=== PATIENT | male | born 1950 | race Two or more races ===

== ENCOUNTER 2024-12-30 10:54 | Emergency (ER) | payer OTHER ==
[~2024-12-30] VITALS: Ht 172.7 cm; Wt 103.4 kg
[2024-12-30] MEDS ORDERED: ACETAMINOPHEN 325 MG TAB PO PRN (11:30)
[2024-12-30] MEDS ORDERED: ARTIFICIAL TEARS 15ml EACHEYE PRN (11:30)
--- NOTE | 2024-12-30 11:34 | ED.PDOC ---
Eye-HPI HPI Comments Rd Person is a 74-year-old male patient who presents to the ED which complaint of mechanical fall with no loss of consciousness and head trauma, with posterior blurry vision from right eye which had cornea transplant. [facility] recommended to refer him to the ED to completed head CT and physical examination. Patient currently complains of head pain of intensity 6- 7/10. Patient also presented abrasion in left dorsum hand. Denies fever, chills, palpitation, syncope, chest pain, dyspnea, nausea, vomiting, diarrhea, bleeding, dysuria, recent travel and motor or sensory deficits. 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 Surgical history: Corneal transplant 2013, dental implants in this month, meniscus tear surgery who per Family history: Denies Social history: Lives in [place] with [id number]. Occasionally smokes marijuana in drinks beer. Denies current tobacco, alcohol and other drug abuse Allergies: Denies Home medication: Metformin, gabapentin, multivitamin, he does not recall rest of medication. Time Seen by MD: 11:02 Allergies: Coded Allergies: NO KNOWN ALLERGIES (Unverified , 12/30/24) Physical Exam General Appearance: No Apparent Distress, Normal HEENT: Cornea (R) (Cornea presents no obvious abrasions.), Normal ENT Inspection, Pharynx Normal, TMs Normal, Other (Right conjunctiva erythema) Neck: Full Range of Motion, Non-Tender, Normal, Normal Inspection Respiratory: Chest Non-Tender, Lungs Clear, No Accessory Muscle Use, No Respiratory Distress, Normal Breath Sounds Cardiovascular: No Edema, No JVD, No Murmur, No Gallop, Normal Peripheral Pulses, Regular Rate/Rhythm Breast Exam: Deferred Gastrointestinal: No Organomegaly, Non Tender, No Pulsatile Mass, Normal Bowel Sounds, Soft Genitalia: Deferred Pelvic: Deferred Rectal: Deferred Extremities: No calf tenderness, Normal capillary refill, Normal inspection, No rmal range of motion, Non-tender, No pedal edema, Other (Abrasion in dorsum of left hand) Neurologic: Alert, epic kaleidoscope analyst II-XII nml as Tested, No Motor Deficits, Normal Affect, Normal Mood, No Sensory Deficits Cerebellar Function: Normal Reflexes: Normal Skin: Dry, Normal Color, Warm Lymphatic: No Adenopathy Was a procedure done? Was a procedure done?: No EENT DIFF Eye: Corneal Ulceration, Foreign Body-Conjunctiva, Foreign Body-Corneal Other Differential Diagnosis Rule out intracranial bleeding X-Ray, Labs, Meds, VS Vital Signs Date Time Temp Pulse Resp B/P (MAP) Pulse Ox O2 Delivery O2 Flow Rate FiO2 12/30/24 12:14 65 16 97 Room Air 12/30/24 12:14 98.3 65 16 155/81 (105) 97 98.3 12/30/24 12:09 97.7 12/30/24 11:51 97.5 71 16 170/76 (107) 98 Current Medications Medications (Trade) Dose Ordered Sig/Vianney Route Start Time Stop Time Status Last Admin Acetaminophen (Tylenol Tablet) 650 mg ONCE ONCE PO 12/30/24 11:30 12/30/24 11:31 DC 12/30/24 12:09 Artificial Tears (Tears Naturale) 1 drop ONCE ONCE EACHEYE 12/30/24 11:30 12/30/24 11:31 DC 12/30/24 12:10 X-Ray, Labs, Meds, VS Comment Reviewed vital signs and head CT. All within normal limits. Time of 1ST Reevaluation: 12:53 Reevaluation 1ST: Unchanged Patient Education/Counseling: Diagnosis, Treatment, Prognosis, Need For Follow Up (With business loan processor) Family Education/Counseling: Diagnosis, Treatment, Prognosis, Need For Follow Up (With business loan processor) Departure 1 Departure Time of Disposition: 12:53 Impression: Primary Impression: Head trauma Disposition: 01 HOME / SELF CARE / HOMELESS Condition: Stable Referrals Patient has a see business loan processor through [place]. Additional Instructions: Completed head CT which showed no acute intracranial abnormalities. Vital signs were within normal limits. Physical examination did not show any perforation of corneal, can not rule out microperforation. Patient was given Tylenol eyedrops. Patient will need to see business loan processor as outpatient. Patient hemodynamically stable, asymptomatic, in condition to be discharged home. Was granted under optimal medical therapy, gave her advice on healthy lifestyle habits, and follow up with PCP and business loan processor as outpatient. Critical Care Note Critical Care Time?: No Stability Stability form required: No Heart Score Heart Score: Heart Score Response (Comments) Value History N/A 0 EKG N/A 0 Age N/A 0 Risk Factors N/A 0 Troponin N/A 0 Total 0 МАРИНА CALERO RESIDENT Dec 30, 2024 11:34
--- NOTE | 2024-12-30 12:05 | DVH ---
CT HEAD WITHOUT CONTRAST INDICATION: Head trauma EXAM DATE: 12/30/2024 11:37 AM COMPARISON: None RADIATION DOSE: CTDIvol: 67.43 mGy, DLP: 1328.6 mGy*cm PROCEDURE: CT scans of the head were obtained from the vertex to the skull base. Sagittal and coronal reconstructions were provided. All CT scans at this medical facility are performed using dose modulation techniques as appropriate t o a performed exam including the following: Automated exposure control was utilized; adjustment of th e MA and/or KV according to patient size; and use of iterative reconstruction technique. FINDINGS: There is sulcal and ventricular prominence. The brainshows normal morphology and hilario-whi te matter differentiation, without intracranial hemorrhage, extra-axial fluid collection, mass effect or acute large vessel infarct. The ventricles are normal in size. The basal cisterns are patent. The skull and visible facial bones are intact. The paranasal sinuses, mastoid air cells and middle ear c avities are well-aerated. The soft tissues of the scalp are unremarkable. IMPRESSION: No acute intracranial abnormality.
[2024-12-30] MEDS: ACETAMINOPHEN 325 MG TAB PO ONE (12:09)
[2024-12-30] MEDS: ARTIFICIAL TEARS 15ml EACHEYE ONE (12:10)
[2024-12-30 14:40] VITALS: BP 156/69; PULSE 56; RESP 16; TEMP 97.7; O2SAT 99
== END 2024-12-30 14:40 | disposition home or self-care (01) ==
LOC: ER 10:59
DX: S60.512A Abrasion of left hand, initial encounter (principal); S09.90XA Unspecified injury of head, initial encounter; W18.39XA Other fall on same level, initial encounter; Y93.89 Activity, other specified; Y92.89 Other specified places as the place of occurrence of the external cause; Y99.8 Other external cause status
CPT/HCPCS: 70450

== ENCOUNTER 2025-02-20 17:39 | Inpatient (IN) | payer OTHER, MEDICARE ==
[~2025-02-20] VITALS: Ht 172.7 cm; Wt 101.2 kg
[2025-02-20 17:44] VITALS: PULSE 120; RESP 41; O2SAT 89
--- NOTE | 2025-02-20 17:45 | ED.PDOC ---
SOB-HPI HPI Comments 75 year old male brought in by EMS presents to the ED with a chief complaint of shortness of breath onset 1 day. Per EMS, patient was experiencing shortness of breath since yesterday, worsen today, began experiencing chest wall pain. Upon EMS arrival, O2 sat was 76% RA, immediately placed on C-pap, 2 breathing treatments given in route as well as Nitro patch applied, improved chest pain. Upon ED arrival patient O2 sat was 75% on C-pap, placed on a non-breather. He denies any cardiac or pulmonary PMHx. PMhx HTN, DM, HLD. Denies nausea, vomiting, diarrhea, abdominal pain, dizziness, blurry vision. No other symptoms or modifying factors present at this time. No fever but intermittent nausea. Time Seen by MD: 17:38 Reviewed notes: Nurses Notes, Occupational Analyst Notes, Medications, Allergies Information Source: Patient, Emergency Med Personnel Mode of Arrival: EMS Severity: Moderate Timing: Days Duration: Since onset Context: At Rest PE Risk Factors: None History of: None Prehospital treatment: Breathing Tx, C-Pap, Other (Nitro patch) Modifying Factors: Nothing Associated Signs and Symptoms: Chest Pain Quality: Sharp Radiation: No Radiation Past Medical History PAST MEDICAL HISTORY: DM, HTN Surgical History: Denies all surgeries Family History Family History: Reviewed,noncontributory to illness, No family hx of Cancer, No family hx of DM, No family hx of Heart victoria, No family hx of HTN, No family hx ofKidney victoria, No family hx of Liver victoria, No family hx of Lung victoria, No family hx of Stroke Social History Smoker: Non-Smoker Alcohol: Denies ETOH Use Drugs: Denies Drug Use Lives In: Home Constitutional: denies: chills, diaphoresis, fatigue, fever, malaise, sweats, weakness, others EENTM: denies: blurred vision, double vision, ear bleeding, ear discharge, ear drainage, ear pain, ear ringing, eye pain, eye redness, hearing loss, mouth pain, mouth swelling, nasal discharge, nose bleeding, nose congestion, nose pain, photophobia, tearing, throat pain, throat swelling, voice changes, others Respiratory: reports: SOB at rest, shortness of breath; denies: cough, hemoptysis, orthopnea, SOB with excertion, stridor, wheezing, others Cardiovascular: reports: chest pain; denies: dizzy spells, diaphoresis, Dyspnea on exertion, edema, irregular heart beat, left arm pain, lightheadedness, palpitations, PND, syncope, others Gastrointestinal: denies: abdomen distended, abdominal pain, blood streaked bowels, constipated, diarrhea, dysphagia, difficulty swallowing, hematemesis, melena, nausea, poor appetite, poor fluid intake, rectal bleeding, rectal pain, vomiting, others Genitourinary: denies: burning, dysuria, flank pain, frequency, hematuria, incontinence, penile discharge, penile sore, pain, testicle pain, testicle swelling, urgency, others Neurological: denies: dizziness, fainting, headache, left sided numbness, left sided weakness, numbness, paresthesia, pre-existing deficit, right sided numbness, right sided weakness, seizure, speech problems, tingling, tremors, weakness, others Musculoskeletal: denies: back pain, gout, joint pain, joint swelling, muscle pain, muscle stiffness, neck pain, others Integumetry: denies: bruises, change in color, change in hair/nails, dryness, laceration, lesions, lumps, rash, wounds, others Allergic/Immunocompromised: denies: Difficulty Healing, Frequent Infections, Hives, Itching, others Hematologic/Lymphatic: denies: anemia, blood clots, easy bleeding, easy bruising, swollen glands, others Endocrine: denies: excessive hunger, excessive sweating, excessive thirst, excessive urination, flushing, intolerance to cold, intolerance to heat, unexplained weight gain, unexplained weight loss, others Psychiatric: denies: anxiety, bipolar disorder, depression, hopeless, panic disorder, schizophrenia, sleepless, suicidal, others Physical Exam General Appearance: Moderate Distress (Moderate distress due to chest pain concerns. Patient appears to be in poor overall health.), Obese HEENT: Normal ENT Inspection, Pharynx Normal, TMs Normal Neck: Full Range of Motion, Non-Tender, Normal, Normal Inspection Respiratory: Other ( Patient here rhonchi and wheezing appreciated throughout bilateral lung de leon. Patient was displaying signs of air hunger.) Cardiovascular: No Edema, No JVD, No Murmur, No Gallop, Normal Peripheral Pulses, Regular Rate/Rhythm Breast Exam: Deferred Gastrointestinal: No Organomegaly, Non Tender, No Pulsatile Mass, Normal Bowel Sounds, Soft Genitalia: Deferred Pelvic: Deferred Rectal: Deferred Extremities: NOT DONE Neurologic: NOT DONE Cerebellar Function: NOT DONE Reflexes: NOT DONE Skin: Dry, Normal Color, Warm Lymphatic: No Adenopathy Was a procedure done? Was a procedure done?: No Differential Dx Differential Diagnosis: Anxiety, Asthma, Bronchitis, CHF, Hypertension, Hyperventilation, Myocardial infarction, Pneumonia, Pneumothorax, Pulmonary Embolism, Respiratory Distress, URI X-Ray, Labs, Meds, VS Vital Signs Date Time Temp Pulse Resp B/P (MAP) Pulse Ox O2 Delivery O2 Flow Rate FiO2 02/20/25 22:45 101 92 Facial BiPAP Mask 40 02/20/25 22:36 105/75 02/20/25 22:00 99 23 105/75 (85) 91 02/20/25 20:58 98.9 107 22 123/64 95 98.9 02/20/25 20:42 107 123/64 95 Facial BiPAP Mask 40 02/20/25 19:15 98.9 99 22 103/52 (69) 94 98.9 02/20/25 19:15 99 22 94 Nasal Cannula* 40 N/A Non-Rebreather 02/20/25 18:38 22 92 Bi-Pap+ 40 40 02/20/25 18:00 105 02/20/25 17:59 107 02/20/25 17:51 42 91 Non-Rebreather 15 N/A 02/20/25 17:46 97.7 122 42 118/62 (80) 91 97.7 02/20/25 17:44 97.6 120 41 118/62 (80) 89 97.6 02/20/25 17:44 120 41 89 Nasal Cannula* 15 N/A Non-Rebreather Lab Test 02/20/25 21:10 02/20/25 20:05 02/20/25 19:10 02/20/25 17:55 Range/Units Troponin I High Sensitivity 7814 *H 4267 *H 2415 *H </=54 ng/L Blood Gas Specimen Type Arterial Blood Gas Sample Site Right radial Blood Gas Patient Temperature 37.0 Arterial Blood Date Drawn [id number] Arterial Blood pH 7.385 7.350-7.450 Arterial Blood Partial Pressure CO2 27.0 L 35.0-48.0 mmHg Arterial Blood Partial Pressure O2 67.4 L 83.0-108.0 mmHg Arterial Blood HCO3 15.8 L 21.0-28.0 mmol/L Arterial Blood Oxygen Saturation 93.1 L 94.0-98.0 % Arterial Blood Base Excess -7.9 L -2.0-3.0 mmol/L Arterial Blood Oxyhemoglobin 92.2 L 94.0-98.0 % Arterial Blood Carboxyhemoglobin 0.4 L 0.5-1.5 % Arterial Blood Methemoglobin 0.6 0.0-1.5 % Silverio Test Yes Blood Gas Total Hemoglobin 11.20 L 13.5-17.5 g/dL Blood Gas Modality Mask - bipap FiO2 % 40.0 Blood Gas EPAP 5 Blood Gas IPAP 12 Lactic Acid Level 4.1 *H 4.3 *H 0.4-2.0 mmol/L White Blood Count 6.2 4.4-10.8 10^3/uL Red Blood Count 3.27 L 4.5-5.90 10^6/uL Hemoglobin 11.1 L 13.5-17.5 g/dL Hematocrit 33.6 L 41.0-53.0 % Mean Corpuscular Volume 102.8 H 80.0-100.0 fL Mean Corpuscular Hemoglobin 34.1 H 28.0-32.0 pg Mean Corpuscular Hemoglobin Concent 33.2 32.0-36.0 g/dL Red Cell Distribution Width 14.7 H 11.8-14.3 % Platelet Count 172 140-450 10^3/uL Mean Platelet Volume 8.7 6.9-10.8 fL Neutrophils (%) (Auto) 69.3 37.0-80.0 % Lymphocytes (%) (Auto) 22.0 10.0-50.0 % Monocytes (%) (Auto) 8.3 0.0-12.0 % Eosinophils (%) (Auto) 0.1 0.0-7.0 % Basophils (%) (Auto) 0.3 0.0-2.0 % Neutrophils # (Auto) 4.3 1.6-8.6 10 ^3/uL Lymphocytes # (Auto) 1.4 0.4-5.4 10 ^3/uL Monocytes # (Auto) 0.5 0-1.3 10 ^3/uL Eosinophils # (Auto) 0 0-0.8 10 ^3/uL Basophils # (Auto) 0 0-0.2 10 ^3/uL Nucleated Red Blood Cells 0.0 % D-Dimer, Quantitative 1.96 H 0.0-0.49 mg/L FEU Sodium Level 136 136-145 mmol/L Potassium Level 4.0 3.5-5.1 mmol/L Chloride Level 103 98-107 mmol/L Carbon Dioxide Level 17 L 20-31 mmol/L Anion Gap 16 H 5-15 Blood Urea Nitrogen 36 H 9-23 mg/dL Creatinine 1.26 0.700-1.30 mg/dL Glomerular Filtration Rate Calc 59 >90 mL/min BUN/Creatinine Ratio 28.6 H 10.0-20.0 Serum Glucose 329 H 74-106 mg/dL Calcium Level 9.4 8.7-10.4 mg/dL Total Bilirubin 1.1 H 0.2-1.0 mg/dL Aspartate Amino Transferase (AST) 83 H 13-40 U/L Alanine Aminotransferase (ALT) 36 7-40 U/L Alkaline Phosphatase 114 46-116 U/L B-Type Natriuretic Peptide 621.41 0-100 pg/mL Total Protein 7.0 5.7-8.2 g/dL Albumin 4.6 3.2-4.8 g/dL Lipase 23 12-53 U/L Current Medications Medications (Trade) Dose Ordered Sig/Vianney Route Start Time Stop Time Status Last Admin Albuterol (Ventolin Medneb) 20 mg ONCE ONCE NEB 02/20/25 17:45 02/20/25 17:46 DC 02/20/25 18:10 Piperacillin Sod/ Tazobactam Sod 100 ml @ 100 mls/hr ONCE ONCE IV 02/20/25 19:15 02/20/25 20:14 DC 02/20/25 19:44 Sodium Chloride 1,000 ml @ 250 mls/hr Q4H ONCE IV 02/20/25 19:15 02/20/25 23:14 DC 02/20/25 19:44 Vancomycin HCl 300 ml @ 200 mls/hr ONCE ONCE IV 02/20/25 19:30 02/20/25 20:59 DC 02/20/25 21:44 Enoxaparin Sodium (Lovenox) 40 mg ONCE ONCE SC 02/20/25 22:30 02/20/25 22:31 DC 02/20/25 22:37 Dexamethasone Sodium Phosphate (Decadron Injection) 10 mg ONCE ONCE IV 02/20/25 22:45 02/20/25 22:46 DC 02/20/25 22:37 Furosemide (Lasix Injection) 40 mg ONCE ONCE IV 02/20/25 22:45 02/20/25 22:46 DC 02/20/25 22:36 Lorazepam (Ativan Inj) 1 mg ONCE ONCE IV 02/20/25 23:15 02/20/25 23:16 DC 02/20/25 23:15 X-Ray, Labs, Meds, VS Comment All studies performed the ED were evaluated by me personally. Serum evaluation revealed anemia, acute renal failure concerns, hyperglycemia, acute CHF exacerbation, elevated D-dimer, elevated lactic acid and significantly elevated troponins. Dr. Kumari was consulted on two occasions to evaluate EKG and responded troponin information. He states patient should be put on heparin or Lovenox and patient will receive a cardiac evaluation tomorrow. We attempted to remove the patient on the BiPAP on to high-flow rebreather as well as Oxymizer, but the patient continued to reduce his saturation levels. Patient will be admitted for acute respiratory failure and other comorbidities. Time of 1ST Reevaluation: 23:34 Reevaluation 1ST: Improved Consultation: PCP Patient Education/Counseling: Diagnosis, Treatment Family Education/Counseling: Diagnosis, Treatment Departure 1 Departure Time of Disposition: 23:39 Impression: Primary Impression: Acute respiratory failure Additional Impressions: Acute exacerbation of CHF (congestive heart failure) Elevated troponin I level Elevated lactic acid level Diabetes mellitus with hyperglycemia Acute renal injury Anemia Anxiety Disposition: 09 ADMITTED INPATIENT Condition: Fair Discharged With: Self Critical Care Note Critical Care Time?: Yes (1 hr-critical care time only) Critical care comment: Due to the high probability of a clinically significant and possibly life- threatening deterioration, this patient required my highest level of preparedness to intervene emergently and therefore, I personally provided 1 hour of critical care time exclusive of time spent on separate billable procedures. This critical care time includes, but is not limited to, obtaining additional history, re-examination of the patient, re-evaluation of pulse oximetry, ordering and reviewing of studies as well as arranging of an urgent treatment plan with the development of a long-term management plan. Additional time spent on evaluation the patient's response to treatment, frequent reassessments and discussions with other providers. Stability Stability form required: No Heart Score Heart Score: Heart Score Response (Comments) Value History Moderate Suspicious 1 EKG Repolarization Disturb 1 Age >65 2 Risk Factors 1 or 2 risk factors 1 Troponin >3 x's Normal limit 2 Total 7 I personally scribed for HILDA LOJA PAC ([email or web address]) on 02/20/25 at 17:45. Electronically submitted by Vandana Abernathy ([email or web address]). HILDA LOJA PAC Feb 20, 2025 17:45
[2025-02-20] MEDS: ALBUTEROL SULF 2.5 MG/0.5ML(0.5%) NEB SOLN NEB ONE (18:10)
[2025-02-20 18:23] LABS: Basophils # (auto) 0 10 ^3/uL (0-0.2); Basophils % (auto) 0.3 % (0.0-2.0); Eosinophils # (auto) 0 10 ^3/uL (0-0.8); Eosinophils % (auto) 0.1 % (0.0-7.0); Hematocrit 33.6 % (41.0-53.0); Hemoglobin 11.1 g/dL (13.5-17.5); Lymphocytes # (auto) 1.4 10 ^3/uL (0.4-5.4); Mean Corpuscular Hemoglobin 34.1 pg (28.0-32.0); Mean Corpuscular Hgb Conc. 33.2 g/dL (32.0-36.0); Mean Corpuscular Volume 102.8 fL (80.0-100.0); Monocytes # (auto) 0.5 10 ^3/uL (0-1.3); Monocytes % (auto) 8.3 % (0.0-12.0); Neutrophils # (auto) 4.3 10 ^3/uL (1.6-8.6); Neutrophils % (auto) 69.3 % (37.0-80.0); Platelet Count (auto) 172 10^3/uL (140-450); Red Blood Cells 3.27 10^6/uL (4.5-5.90); Red Cell Distribution Width 14.7 % (11.8-14.3); White Blood Cell 6.2 10^3/uL (4.4-10.8)
--- NOTE | 2025-02-20 18:25 | DVH ---
CHEST RADIOGRAPH Indication: Shortness of breath Technique: Single frontal view of the chest was obtained COMPARISON: None FINDINGS: Lines and Tubes: None Lungs: Patchy multifocal consolidation is noted, predominantly in the right lung. Pleura: No effusion. No pneumothorax. Cardiomediastinal contours: Cardiomegaly. Bones: Unremarkable IMPRESSION: 1. Patchy multifocal consolidation concerning for pneumonia, predominantly in the right lung.
[2025-02-20 18:41] LABS: Alanine Aminotransferase 36 U/L (7-40); Albumin 4.6 g/dL (3.2-4.8); Alkaline Phosphatase 114 U/L (46-116); Anion Gap 16 (5-15); BUN/Creatinine Ratio 28.6 (10.0-20.0); Bilirubin, Total 1.1 mg/dL (0.2-1.0); Calcium 9.4 mg/dL (8.7-10.4); Chloride 103 mmol/L (98-107); Lipase 23 U/L (12-53)
[2025-02-20 18:43] LABS: Aspartate Aminotransferase 83 U/L (13-40); Blood Urea Nitrogen 36 mg/dL (9-23); Carbon Dioxide 17 mmol/L (20-31); Glucose 329 mg/dL (74-106); Sodium 136 mmol/L (136-145)
[2025-02-20 18:46] LABS: Lactic Acid w/Reflex 4.3 mmol/L (0.4-2.0)
[2025-02-20 19:15] VITALS: PULSE 99; RESP 22; O2SAT 94
[2025-02-20] MEDS ORDERED: VANCOMYCIN PER PHARMACY 0 MG IV SCH (19:15)
[2025-02-20] MEDS: PIPERACILLIN-TAZOB 3.375GM 100 ML IV ONE (19:44)
[2025-02-20] MEDS: SODIUM CHLORIDE 0.9% 1,000 ML IV ONE (19:44)
[2025-02-20 20:17] LABS: Base Excess -7.9 mmol/L (-2.0-3.0)
[2025-02-20 20:42] VITALS: BP 123/64; PULSE 107; O2SAT 95
[2025-02-20 20:58] VITALS: BP 123/64; PULSE 107; RESP 22; TEMP 98.9; O2SAT 95
[2025-02-20] MEDS: VANCOMYCIN 1.5GM/300ML 300 ML IV ONE (21:44)
[2025-02-20] MEDS: FUROSEMIDE 40 MG/4 ML VIAL IV ONE (22:36)
[2025-02-20] MEDS: DexAMETHasone SOD PHOS 10MG/1ML VIAL INJ IV ONE (22:37)
[2025-02-20] MEDS: ENOXAPARIN SOD 40 MG/0.4 ML SYRINGE SC ONE (22:37)
[2025-02-20 22:45] VITALS: PULSE 101; O2SAT 92
--- NOTE | 2025-02-20 23:12 | ECG ---
[facility] Test Date: 2025-02-20 Test Time: 22:12:44 Pat Name: ТАТЬЯНА DELEON Department: ED Room: [address] [place] [address] Gender: M Social Media Marketing Specialist: DALE : 1950 Requested By: HILDA LOJA Order Number: [id number] Reading MD: Татьяна Kumari Measurements Intervals [place] Rate: 96 P: 26 CO: 232 QRS: -42 QRSD: 130 T: 57 QT: 361 QTc: 457 Interpretive Statements Sinus rhythm Atrial premature complexes Prolonged CO interval RBBB and LAFB Nonspecific T abnormalities, lateral leads Baseline wander in lead(s) V2 Electronically Signed On 02-21-2025 16:12:55 PDT by Татьяна Kumari Please click the below link to view image of tracing.
[2025-02-20] MEDS: LORazepam 2MG/ML-1ML VIAL IV ONE (23:15)
[2025-02-20] MEDS: InsuLIN REG 1unit/0.01ml Soln (100units/ml) IV ONE (23:36)
[2025-02-21] VITALS (7 sets, daily range): BP systolic 115–121; BP diastolic 59–68; PULSE 73–95; RESP 23–25; O2SAT 92–97
[2025-02-21] MEDS: LORazepam 2MG/ML-1ML VIAL IV ONE (01:45)
[2025-02-21] MEDS ORDERED: ONDANSETRON HCL 4 MG/2 ML VIAL IV PRN (02:30)
[2025-02-21] MEDS ORDERED: HYDROcodone-ACET 5/325MG TAB PO PRN (02:30)
[2025-02-21] MEDS ORDERED: ACETAMINOPHEN 325 MG TAB PO PRN (02:30)
[2025-02-21] MEDS ORDERED: IPRATROPIUM BROM 0.5 MG/2.5ML INH SOL NEB PRN (02:30)
[2025-02-21] MEDS ORDERED: DEXTROSE (50%) 50ML SYRG IV PRN (02:30)
[2025-02-21] MEDS ORDERED: HEPARIN SODIUM (PORCINE) 5000 UNITS/ML 1ML VIAL IV ONE (02:30)
[2025-02-21] MEDS ORDERED: ALBUTEROL SULF 2.5 MG/0.5ML(0.5%) NEB SOLN NEB PRN (02:30)
[2025-02-21] MEDS ORDERED: DOCUSATE SOD 100 MG CAP PO PRN (02:30)
[2025-02-21] MEDS: SODIUM CHLORIDE 0.9% 1,000 ML IV SCH (02:53)
[2025-02-21 03:25] LABS: Basophils # (auto) 0 10 ^3/uL (0-0.2); Basophils % (auto) 0.2 % (0.0-2.0); Eosinophils # (auto) 0 10 ^3/uL (0-0.8); Hematocrit 31.1 % (41.0-53.0); Hemoglobin 10.8 g/dL (13.5-17.5); Lymphocytes # (auto) 0.3 10 ^3/uL (0.4-5.4); Lymphocytes % (auto) 6.8 % (10.0-50.0); Mean Corpuscular Hemoglobin 35.2 pg (28.0-32.0); Mean Corpuscular Hgb Conc. 34.8 g/dL (32.0-36.0); Mean Corpuscular Volume 101.2 fL (80.0-100.0); Monocytes # (auto) 0.4 10 ^3/uL (0-1.3); Neutrophils # (auto) 4.1 10 ^3/uL (1.6-8.6); Nucleated Red Blood Cells % 0.1 %; Platelet Count (auto) 160 10^3/uL (140-450); Red Blood Cells 3.08 10^6/uL (4.5-5.90); Red Cell Distribution Width 14.6 % (11.8-14.3); White Blood Cell 4.8 10^3/uL (4.4-10.8)
[2025-02-21] MEDS: ACCU-CHEK COMFORT CURVE STRIP VI SCH (03:39)
[2025-02-21] MEDS: InsuLIN REG 1unit/0.01ml Soln (100units/ml) SC SCH (03:42)
[2025-02-21 03:43] LABS: Albumin 4.4 g/dL (3.2-4.8); Alkaline Phosphatase 105 U/L (46-116); Anion Gap 11 (5-15); BUN/Creatinine Ratio 29.2 (10.0-20.0); Bilirubin, Total 0.8 mg/dL (0.2-1.0); Calcium 9.2 mg/dL (8.7-10.4); Carbon Dioxide 20 mmol/L (20-31); Chloride 106 mmol/L (98-107); Potassium 4.2 mmol/L (3.5-5.1); Sodium 137 mmol/L (136-145); Total Protein 6.8 g/dL (5.7-8.2)
[2025-02-21 03:45] LABS: Alanine Aminotransferase 44 U/L (7-40); Aspartate Aminotransferase 189 U/L (13-40); Blood Urea Nitrogen 38 mg/dL (9-23); Glucose 263 mg/dL (74-106)
[2025-02-21 03:58] LABS: INR 1.08 (0.9-1.15); Partial Thromboplastin Time 40.5 SEC (24.5-34.5); Prothrombin Time 11.4 sec (9.3-11.8)
--- NOTE | 2025-02-21 04:22 | CONS ---
Pharmacy Clinical Information: Heparin ACS indication Provider: Jude Larson Patient received Lovenox @ 2237, so hold initial bolus Baseline labs @ 0305: H/H=10.8/31.1 Fia=137 PT/INR=11.4/1.08 PTT=40.5 Bhwx=6692 Ir=195 kg (RN unsure if actual wt, but cannot place patient on scale, but pt likely to be at max rate regardless. Needs follow up for updated wt in AM once patient admitted.) Start rate at 10 ml/fl=4692 units/hr Next PTT @ 1030 Notified RN and stated no signs of bleeding. Chemistry Test 02/20/25 17:55 02/21/25 03:05 Albumin 4.6 g/dL (3.2-4.8) 4.4 g/dL (3.2-4.8) Calcium Level 9.4 mg/dL (8.7-10.4) 9.2 mg/dL (8.7-10.4) Total Protein 7.0 g/dL (5.7-8.2) 6.8 g/dL (5.7-8.2) Coagulation Test 02/20/25 17:55 02/21/25 03:05 D-Dimer, Quantitative 1.96 mg/L FEU (0.0-0.49) H Prothrombin Time 11.4 sec (9.3-11.8) Prothrombin Time INR 1.08 (0.9-1.15) Activated Partial Thromboplast Time 40.5 SEC (24.5-34.5) H Lipid panel Test 02/20/25 17:55 Lipase 23 U/L (12-53) Cardiac Markers Test 02/20/25 17:55 B-Type Natriuretic Peptide 621.41 pg/mL (0-100) LFT Test 02/20/25 17:55 02/21/25 03:05 Alanine Aminotransferase (ALT) 36 U/L (7-40) 44 U/L (7-40) H Alkaline Phosphatase 114 U/L (46-116) 105 U/L (46-116) Aspartate Amino Transferase (AST) 83 U/L (13-40) H 189 U/L (13-40) H Total Bilirubin 1.1 mg/dL (0.2-1.0) H 0.8 mg/dL (0.2-1.0) HgA1c, TSH Test 02/21/25 03:05 Hemoglobin A1c 6.4 % A1C (<5.7) H JUAN MANUEL CARMONA Feb 21, 2025 04:22
[2025-02-21] MEDS: HEPARIN DRIP/D5W 100UNITS/ML 250 ML IV SCH (04:25)
--- NOTE | 2025-02-21 04:42 | DVHHP2 ---
History of Present Illness Reason for Visit: Acute exacerbation of congestive heart failure History of Present Illness The patient is a 75-year-old male with past medical history of diabetes mellitus , hyperlipidemia, and hypertension who presented to [facility] ED with complaint of shortness of breaths. Patient reports symptoms progressively get worse with chest wall pain generalized weakness, increased work of breathing, getting worse today that prompted this visit. Patient was seen and evaluated in the ED, laboratory data shows WBC 6.2, hemoglobin 11.1, hematocrit 33.6, platelets 172, sodium 136, potassium 4.0, BUN 36, creatinine 1.26, GFR 59, glucose 329, anion gap 16, AST 83, ALT 36, total bilirubin 1.1, C-reactive protein 1.96, lipase 23, BNP 620 141, troponin 2415. Chest x-ray revealing patchy multifocal consolidation concerning for pneumonia, predominantly in the right lungs. Patient was started on IV antibiotic regimen vancomycin, IV Zosyn, please see medication orders section in the computer. On my assessment, patient denied chest pain, no headache, no dizziness, currently on BiPAP, no nausea, no vomiting, no fever, no chills. Patient was admitted for further evaluation and medical management. Past Medical History DM, HTN, HLD Past Surgical History Denies all surgeries Family History Reviewed, noncontributory to the management of this case. Past Social History The patient lives at home, denies smoking, alcohol or illicit drugs abuse. Review of Systems Constitutional: Yes: Weakness; No: Fever, Chills, Sweats, Malaise, Other Eyes: No: Pain, Vision change, Conjunctivae inflammation, Eyelid inflammation, Other, Redness ENT: No: Ear pain, Ear discharge, Nose pain, Nose discharge, Nose congestion, Mouth pain, Mouth swelling, Throat pain, Throat swelling, Other Respiratory: Shortness of breath, Other (SOB at rest); No: Cough, Dry, SOB with excertion, Wheezing, Hemoptysis, Pleuritic Pain, Sputum, Wheezing Cardiovascular: Chest Pain; No: Palpitations, Orthopnea, Paroxysmal Noc. Dyspnea, Edema, Lt Headedness, Other Gastrointestinal: No: Nausea, Vomiting, Abdominal Pain, Diarrhea, Constipation, Melena, Hematochezia, Other Genitourinary: No Dysuria, No Frequency, No Incontinence, No Hematuria, No Retention, No Other Musculoskeletal: No: other, neck pain, shoulder pain, arm pain, back pain, hand pain, leg pain, foot pain Skin: No: Rash, Lesions, Jaundice, Bruising, Other Neurological: No: Weakness, Numbness, Incoordination, Change in speech, Confusion, Seizures, Other Allergies: Coded Allergies: NO KNOWN ALLERGIES (Unverified , 12/30/24) Medications Current Medications Medications Dose Ordered Sig/Vianney Route Start Time Stop Time Status Last Admin Dose Admin Vancomycin HCl 0 ml @ 0 mls/hr UD IV 02/20/25 19:15 UNV Furosemide 40 mg DAILY IV 02/21/25 10:00 Famotidine 20 mg Q12HR IV 02/21/25 10:00 Methylprednisolone Sodium Succinate 40 mg Q8HR IV 02/21/25 06:00 Piperacillin Sod/ Tazobactam Sod 100 ml @ 25 mls/hr Q8HR IV 02/21/25 06:00 Albuterol 2.5 mg Q4HPRN PRN NEB 02/21/25 02:30 Ipratropium Blue 0.5 mg Q4HPRN PRN NEB 02/21/25 02:30 Heparin Sodium/ Dextrose 250 ml @ 10 mls/hr Q24H IV 02/21/25 04:30 02/21/25 04:25 10 MLS/HR Diagnostic Test (Pha) 1 strip IQ4HR 02/21/25 04:00 02/21/25 03:39 1 STRIP Insulin Human Regular IQ4HR SC 02/21/25 04:00 02/21/25 03:42 6 UNITS Dextrose 50 ml UD PRN IV 02/21/25 02:30 Sodium Chloride 1,000 ml @ 60 mls/hr [id number] IV 02/21/25 02:30 02/21/25 02:53 60 MLS/HR Acetaminophen/ Hydrocodone Bitart 1 tab Q4HP PRN PO 02/21/25 02:30 Ondansetron HCl 4 mg Q4HP PRN IV 02/21/25 02:30 Docusate Sodium 100 mg BIDPRN PRN PO 02/21/25 02:30 Acetaminophen 650 mg Q6HP PRN PO 02/21/25 02:30 Carvedilol 3.125 mg Q12HR PO 02/21/25 10:00 Exam Vital Signs Vital Signs Date Time Temp Pulse Resp B/P (MAP) Pulse Ox O2 Delivery O2 Flow Rate FiO2 02/21/25 04:00 74 02/21/25 04:00 23 105/75 (85) 95 02/21/25 03:50 Nasal BiPAP Mask 70 02/20/25 20:58 98.9 98.9 02/20/25 19:15 40 General Appearance: Alert, Oriented X3, Cooperative, No acute distress HEENT: Atraumatic, PERRLA, EOMI, Mucous membr. moist/pink Respiratory: Clear to auscultation, Normal air movement Cardiovascular: Regular rate, Normal S1, Normal S2, No murmurs Abdominal: Normal bowel sounds, Soft, No tenderness, No hepatospenomegaly, No masses Extremities: No clubbing, No cyanosis, No edema, Normal pulses, No tenderness/swelling Skin: No rashes, No breakdown, No significant lesion Neuro: Normal speech, Normal tone, Sensation intact, Cranial nerves 3-12 NL, Reflexes 2+, Other (Generalized weakness) Psych/Mental Status: Mental status NL, Mood NL Labs/Xrays Labs Test 02/21/25 03:37 02/21/25 03:05 02/20/25 21:10 02/20/25 20:05 Range/Units POC Glucose 241 H 70-106 mg/dl White Blood Count 4.8 4.4-10.8 10^3/uL Red Blood Count 3.08 L 4.5-5.90 10^6/uL Hemoglobin 10.8 L 13.5-17.5 g/dL Hematocrit 31.1 L 41.0-53.0 % Mean Corpuscular Volume 101.2 H 80.0-100.0 fL Mean Corpuscular Hemoglobin 35.2 H 28.0-32.0 pg Mean Corpuscular Hemoglobin Concent 34.8 32.0-36.0 g/dL Red Cell Distribution Width 14.6 H 11.8-14.3 % Platelet Count 160 140-450 10^3/uL Mean Platelet Volume 8.5 6.9-10.8 fL Neutrophils (%) (Auto) 85.0 H 37.0-80.0 % Lymphocytes (%) (Auto) 6.8 L 10.0-50.0 % Monocytes (%) (Auto) 8.0 0.0-12.0 % Eosinophils (%) (Auto) 0.0 0.0-7.0 % Basophils (%) (Auto) 0.2 0.0-2.0 % Neutrophils # (Auto) 4.1 1.6-8.6 10 ^3/uL Lymphocytes # (Auto) 0.3 L 0.4-5.4 10 ^3/uL Monocytes # (Auto) 0.4 0-1.3 10 ^3/uL Eosinophils # (Auto) 0 0-0.8 10 ^3/uL Basophils # (Auto) 0 0-0.2 10 ^3/uL Nucleated Red Blood Cells 0.1 % Prothrombin Time 11.4 9.3-11.8 sec Prothrombin Time INR 1.08 0.9-1.15 Activated Partial Thromboplast Time 40.5 H 24.5-34.5 SEC Sodium Level 137 136-145 mmol/L Potassium Level 4.2 3.5-5.1 mmol/L Chloride Level 106 98-107 mmol/L Carbon Dioxide Level 20 20-31 mmol/L Anion Gap 11 5-15 Blood Urea Nitrogen 38 H 9-23 mg/dL Creatinine 1.30 0.700-1.30 mg/dL Glomerular Filtration Rate Calc 57 >90 mL/min BUN/Creatinine Ratio 29.2 H 10.0-20.0 Serum Glucose 263 H 74-106 mg/dL Hemoglobin A1c 6.4 H <5.7 % A1C Calcium Level 9.2 8.7-10.4 mg/dL Total Bilirubin 0.8 0.2-1.0 mg/dL Aspartate Amino Transferase (AST) 189 H 13-40 U/L Alanine Aminotransferase (ALT) 44 H 7-40 U/L Alkaline Phosphatase 105 46-116 U/L Total Protein 6.8 5.7-8.2 g/dL Albumin 4.4 3.2-4.8 g/dL Troponin I High Sensitivity 7814 *H </=54 ng/L Blood Gas Specimen Type Arterial Blood Gas Sample Site Right radial Blood Gas Patient Temperature 37.0 Arterial Blood Date Drawn [id number] Arterial Blood pH 7.385 7.350-7.450 Arterial Blood Partial Pressure CO2 27.0 L 35.0-48.0 mmHg Arterial Blood Partial Pressure O2 67.4 L 83.0-108.0 mmHg Arterial Blood HCO3 15.8 L 21.0-28.0 mmol/L Arterial Blood Oxygen Saturation 93.1 L 94.0-98.0 % Arterial Blood Base Excess -7.9 L -2.0-3.0 mmol/L Arterial Blood Oxyhemoglobin 92.2 L 94.0-98.0 % Arterial Blood Carboxyhemoglobin 0.4 L 0.5-1.5 % Arterial Blood Methemoglobin 0.6 0.0-1.5 % Silverio Test Yes Blood Gas Total Hemoglobin 11.20 L 13.5-17.5 g/dL Blood Gas Modality Mask - bipap FiO2 % 40.0 Blood Gas EPAP 5 Blood Gas IPAP 12 Test 02/20/25 19:10 02/20/25 17:55 Range/Units Lactic Acid Level 4.1 *H 0.4-2.0 mmol/L D-Dimer, Quantitative 1.96 H 0.0-0.49 mg/L FEU B-Type Natriuretic Peptide 621.41 0-100 pg/mL Lipase 23 12-53 U/L PATIENT: ТАТЬЯНА DELEON ACCT: [id number] UNIT: [id number] : 1950 LOC: ER ROOM / BED: / AGE / SEX: 75 / M ADM STATUS: REG ER SERVICE 1750 ORDERING PHYSICIAN: HILDA LOJA PAC PROCEDURE(s): CXRP - CHEST PORTABLE REASON: Shortness of breath ORDER NUMBER(s): [id number], ACCESSION NUMBER(s): [id number] CHEST RADIOGRAPH Indication: Shortness of breath Technique: Single frontal view of the chest was obtained COMPARISON: None FINDINGS: Lines and Tubes: None Lungs: Patchy multifocal consolidation is noted, predominantly in the right lung. Pleura: No effusion. No pneumothorax. Cardiomediastinal contours: Cardiomegaly. Bones: Unremarkable IMPRESSION: 1. Patchy multifocal consolidation concerning for pneumonia, predominantly in the right lung. Assessment/Plan Assessment/Plan Acute respiratory failure Acute renal injury Anemia, unspecified Anxiety Pneumonia, unspecified organism Acute exacerbation of congestive heart failure Elevated troponin I level Elevated lactic acid level Diabetes mellitus with hyperglycemia Plan 1. Admit to telemetry unit 2. Breathing treatment 3. Pain control management 4. Management of fluids and electrolytes 5. Consultation for Cardiology/hospitalist 6. Diagnostic tests chest x-ray 7. DVT prophylaxis-on heparin drip 8. Repeat labs CBC, CMP in a.m. 9. Continue with current medical management 10. Treatment plan discussed with patient and RN. Patient verbalized understanding. Plan discussed with: Patient, Other (RN) My Orders Orders - GUIDO SOFIA DNP Procedure Category Date Status Time Furosemide Injection PHA 02/21/25 In Process (Lasix Injection) 10:00 Famotidine Injection PHA 02/21/25 In Process (Pepcid Injection) 10:00 Methylprednisolone PHA 02/21/25 In Process Sod Succ (Solu Medrol 06:00 Piperacillin-Tazob PHA 02/21/25 In Process 3.375gm (Zosyn 3.375g 06:00 Albuterol Medneb PHA 02/21/25 In Process (Ventolin Medneb) 02:30 Ipratropium Medneb PHA 02/21/25 In Process (Atrovent Medneb) 02:30 Consistent DIET 02/21/25 Transmitted Carb(Ccho)Diabetes Breakfast * Cardiology Consult CONS 02/21/25 Transmitted 02:17 Platelet Monitoring ALBERTINA 02/21/25 In Process 02:17 Heparin Per ALBERTINA 02/21/25 In Process Standardized Proce 02:17 Discontinue All Im ALBERTINA 02/21/25 In Process Injections 02:17 Heparin Drip/D5w PHA 02/21/25 In Process 100units/Ml 04:30 Stat Ekg For Chest ALBERTINA 02/21/25 In Process Pain 02:17 Glucose Blood PHA 02/21/25 In Process (Accu-Chek Comfort 04:00 Insulin R (Human) PHA 02/21/25 In Process (Insulin R) 04:00 Dextrose 50% Syringe PHA 02/21/25 In Process 02:30 Allergies ALBERTINA 02/21/25 In Process 02:17 Code Status CODE 02/21/25 Transmitted 02:17 Sodium Chloride 0.9% PHA 02/21/25 In Process 02:30 Oxygen Per Hour RT 02/21/25 Transmitted 02:17 Hydrocodone-Acet PHA 02/21/25 In Process 5/325mg Tab ([place] 02:30 Ondansetron Hcl PHA 02/21/25 In Process (Zofran) 02:30 Docusate Sodium PHA 02/21/25 In Process Capsule (Colace 02:30 Fall Risk Precautions ALBERTINA 02/21/[address] 02:17 Complete Blood Count LAB 02/22/25 Verified 04:00 Comprehensive LAB 02/22/25 Verified Metabolic Panel 04:00 Echo 2d Mode Cardiac US 02/21/25 Logged DOP 02:17 Condition: Serious [facility] 02/21/25 In Process 02:17 Acetaminophen Tablet [facility] 02/21/25 In Process (Tylenol Tablet) 02:30 Sequential [facility] 02/21/25 In Process Compression Device Carvedilol Tablet [facility] 02/21/25 In Process (Coreg Tablet) 10:00 PTPTT LAB 02/21/25 Logged 10:30 Heparin Per Pharmacy [facility] 02/21/25 In Process Protocol 04:04 Admit ADMIT 02/21/25 Transmitted 04:41 Nitroglycerin [facility] 02/21/25 Transmitted Sublingual (Ntrostat 04:45 Morphine Sulfate [facility] 02/21/25 Transmitted Injection 04:45 Notify Md Of Changes [facility] 02/21/25 Verified From Base 04:41 Wood Heel Flap Trimmer For [facility] 02/21/25 Verified 24 Hours 04:41 Emergency Dysrhythmia [facility] 02/21/25 Verified Protocol 04:41 Rhythm Strips Once [facility] 02/21/25 Verified Every Shift 04:41 Oxygen By Nasal RT 02/21/25 Verified Cannula 04:41 Problem List: (1) Acute respiratory failure (2) Anemia, unspecified (3) Elevated lactic acid level (4) Elevated troponin I level (5) Anxiety (6) Acute renal injury (7) Diabetes mellitus with hyperglycemia (8) Pneumonia, unspecified organism (9) Acute exacerbation of congestive heart failure Date of Service: Feb 21, 2025 Billing Provider: GUIDO SOFIA DNP Common Visit Codes: [id number] INP/OBS CARE (HIGH) GUIDO OSFIA DNP Feb 21, 2025 04:42
[2025-02-21] MEDS ORDERED: MORPHINE SULFATE INJ 2 MG/ml SYRG IV PRN (04:45)
[2025-02-21] MEDS ORDERED: NITROGLYCERIN 0.4 MG SL TAB SL PRN (04:45)
[2025-02-21] MEDS: methylPREDNISolone SOD SUCC 40 MG/ML VL IV SCH (05:34)
[2025-02-21] MEDS: PIPERACILLIN-TAZOB 3.375GM 100 ML IV SCH (05:35)
[2025-02-21 08:22] LABS: Base Excess -5.4 mmol/L (-2.0-3.0)
[2025-02-21 09:00] LABS: Magnesium 2.3 mg/dL (1.6-2.6)
--- NOTE | 2025-02-21 09:16 | DVHINCON2 ---
Date Seen: Feb 21, 2025 Referring Physician DALE Larson Reason for Consultation NSTEMI History of Present Illness This is a 75-year-old male patient who presents to the emergency room with chief complaint of worsening shortness of breath and chest pain for three days. The patient reports that he noticed some shortness of breath for the last few days. On the day of emergency room arrival, the patient reports that he experienced severe shortness of breath and asked his to call 911. The patient was brought to the emergency room for further evaluation. The patient also mentions intermittent chest pain. He describes it as unprovoked, pressure-like in nature, substernal, and nonradiating. Associated symptoms include shortness of breath. Initial twelve lead electrocardiogram reveals sinus tachycardia with right bundle branch block. Initial troponin level of 2415ng/L with significant up trend and current peak level at 7814ng/L (pending another level). Significant past medical history includes hypertension, dyslipidemia, type 2 diabetes mellitus, and morbid obesity. Past Medical History Past medical history reviewed. No other significant than mentioned above. Past Surgical History Right eye cornea transplant Family History Family history reviewed. Social History Patient has a three pack year history, quit smoking in 1970 Denies any alcohol use Denies any drug use Allergies: Coded Allergies: NO KNOWN ALLERGIES (Unverified , 12/30/24) Home Meds Home medications reviewed. Current Medications Current Medications Medications (Trade) Dose Ordered Sig/Vianney Route PRN Reason Start Time Stop Time Status Last Admin Vancomycin HCl 0 ml @ 0 mls/hr UD IV 02/20/25 19:15 UNV Furosemide (Lasix Injection) 40 mg DAILY IV 02/21/25 10:00 Famotidine (Pepcid Injection) 20 mg Q12HR IV 02/21/25 10:00 Methylprednisolone Sodium Succinate (Solu Medrol) 40 mg Q8HR IV 02/21/25 06:00 02/21/25 05:34 Piperacillin Sod/ Tazobactam Sod 100 ml @ 25 mls/hr Q8HR IV 02/21/25 06:00 02/21/25 05:35 Albuterol (Ventolin Medneb) 2.5 mg Q4HPRN PRN NEB SHORTNESS OF BREATH 02/21/25 02:30 Ipratropium [place] (Atrovent Medneb) 0.5 mg Q4HPRN PRN NEB SHORTNESS OF BREATH 02/21/25 02:30 Heparin Sodium/ Dextrose 250 ml @ 10 mls/hr Q24H IV 02/21/25 04:30 02/21/25 04:25 Diagnostic Test (Pha) (Accu-Chek Comfort Curve T) 1 strip IQ4HR 02/21/25 04:00 02/21/25 08:10 Insulin Human Regular (InsuLIN R) IQ4HR SC 02/21/25 04:00 02/21/25 08:09 Dextrose 50 ml UD PRN IV Blood Sugar LESS THAN 60 02/21/25 02:30 Sodium Chloride 1,000 ml @ 60 mls/hr [id number] IV 02/21/25 02:30 02/21/25 02:53 Acetaminophen/ Hydrocodone Bitart ([place] 5/325MG Tab) 1 tab Q4HP PRN PO MODERATE PAIN (4-6 PAIN SCALE) 02/21/25 02:30 Ondansetron HCl (Zofran) 4 mg Q4HP PRN IV NAUSEA / VOMITING 02/21/25 02:30 Docusate Sodium (Colace Capsule) 100 mg BIDPRN PRN PO FOR CONSTIPATION 02/21/25 02:30 Acetaminophen (Tylenol Tablet) 650 mg Q6HP PRN PO PAIN SCALE 1-3 OR TEMP>100.4 02/21/25 02:30 Carvedilol (Coreg Tablet) 3.125 mg Q12HR PO 02/21/25 10:00 Nitroglycerin (Ntrostat Sublingual) 0.4 mg Q5MINP PRN SL FOR CHEST PAIN 02/21/25 04:45 Morphine Sulfate 2 mg Q30M PRN IV FOR CHEST PAIN 02/21/25 04:45 Review of Systems Constitutional: No symptom reported Ears, Nose, & Throat: No symptom reported Eyes: No symptom reported Neurological: No symptoms reported Pulmonary/Respiratory: Shortness of breath Cardiovascular: Chest pain Gastrointestinal: No symptom reported Genitourinary: No symptom reported Musculoskeletal: No symptom reported Skin: No symptom reported Psychiatric: No symptom reported Endocrine: No symptom reported Hematologic/Lymphatic: No symptom reported Vital Signs Vital Signs Date Time Temp Pulse Resp B/P (MAP) Pulse Ox O2 Delivery O2 Flow Rate FiO2 02/21/25 08:27 92 Oxymizer 8 64 64 3/23/25 06:14 73 121/68 02/21/25 06:00 24 02/20/25 20:58 98.9 98.9 Physical Exam General Appearance: Cooperative. Obese Pulmonary/Respiratory: Bilateral expiratory wheezes on auscultation Cardiovascular/Chest: Regular rate and rhythm. Peripheral Pulses: 2+ Radial (R). 2+ Radial (L). 2+ Pedal (R). 2+ Pedal (L) Abdominal Exam: Normal bowel sounds. Ankle Exam: Negative ankle edema Lower extremities: Negative lower extremity edema Neuro/Mental Status: A/OX4, coherent. Thoughts/Psych: Normal thought pattern. Appropriate mood and affect. Good judgment and insight. Appearance: No acute distress. Skin Exam: Normal inspection. Normal color. Warm and dry. Labs/Diagnostic Data Labs Test 02/21/25 08:15 02/21/25 08:04 02/21/25 03:05 02/20/25 19:10 Range/Units Blood Gas Specimen Type Arterial Blood Gas Sample Site Right radial Blood Gas Patient Temperature 37.0 Arterial Blood Date Drawn [id number] Arterial Blood pH 7.393 7.350-7.450 Arterial Blood Partial Pressure CO2 31.2 L 35.0-48.0 mmHg Arterial Blood Partial Pressure O2 83.4 83.0-108.0 mmHg Arterial Blood HCO3 18.6 L 21.0-28.0 mmol/L Arterial Blood Oxygen Saturation 95.6 94.0-98.0 % Arterial Blood Base Excess -5.4 L -2.0-3.0 mmol/L Arterial Blood Oxyhemoglobin 95.0 94.0-98.0 % Arterial Blood Carboxyhemoglobin 0.3 L 0.5-1.5 % Arterial Blood Methemoglobin 0.3 0.0-1.5 % Silverio Test Modified Blood Gas Total Hemoglobin 11.50 L 13.5-17.5 g/dL Blood Gas Set Respiration Rate 12.0 Blood Gas Modality Mask - bipap Blood Gas Spontaneous Rate 32 FiO2 % 60.0 Blood Gas EPAP 5 Blood Gas IPAP 12 POC Glucose 170 H 70-106 mg/dl White Blood Count 4.8 4.4-10.8 10^3/uL Red Blood Count 3.08 L 4.5-5.90 10^6/uL Hemoglobin 10.8 L 13.5-17.5 g/dL Hematocrit 31.1 L 41.0-53.0 % Mean Corpuscular Volume 101.2 H 80.0-100.0 fL Mean Corpuscular Hemoglobin 35.2 H 28.0-32.0 pg Mean Corpuscular Hemoglobin Concent 34.8 32.0-36.0 g/dL Red Cell Distribution Width 14.6 H 11.8-14.3 % Platelet Count 160 140-450 10^3/uL Mean Platelet Volume 8.5 6.9-10.8 fL Neutrophils (%) (Auto) 85.0 H 37.0-80.0 % Lymphocytes (%) (Auto) 6.8 L 10.0-50.0 % Monocytes (%) (Auto) 8.0 0.0-12.0 % Eosinophils (%) (Auto) 0.0 0.0-7.0 % Basophils (%) (Auto) 0.2 0.0-2.0 % Neutrophils # (Auto) 4.1 1.6-8.6 10 ^3/uL Lymphocytes # (Auto) 0.3 L 0.4-5.4 10 ^3/uL Monocytes # (Auto) 0.4 0-1.3 10 ^3/uL Eosinophils # (Auto) 0 0-0.8 10 ^3/uL Basophils # (Auto) 0 0-0.2 10 ^3/uL Nucleated Red Blood Cells 0.1 % Prothrombin Time 11.4 9.3-11.8 sec Prothrombin Time INR 1.08 0.9-1.15 Activated Partial Thromboplast Time 40.5 H 24.5-34.5 SEC Sodium Level 137 136-145 mmol/L Potassium Level 4.2 3.5-5.1 mmol/L Chloride Level 106 98-107 mmol/L Carbon Dioxide Level 20 20-31 mmol/L Anion Gap 11 5-15 Blood Urea Nitrogen 38 H 9-23 mg/dL Creatinine 1.30 0.700-1.30 mg/dL Glomerular Filtration Rate Calc 57 >90 mL/min BUN/Creatinine Ratio 29.2 H 10.0-20.0 Serum Glucose 263 H 74-106 mg/dL Hemoglobin A1c 6.4 H <5.7 % A1C Calcium Level 9.2 8.7-10.4 mg/dL Total Bilirubin 0.8 0.2-1.0 mg/dL Aspartate Amino Transferase (AST) 189 H 13-40 U/L Alanine Aminotransferase (ALT) 44 H 7-40 U/L Alkaline Phosphatase 105 46-116 U/L Total Protein 6.8 5.7-8.2 g/dL Albumin 4.4 3.2-4.8 g/dL Lactic Acid Level 4.1 *H 0.4-2.0 mmol/L Test 02/20/25 17:55 Range/Units D-Dimer, Quantitative 1.96 H 0.0-0.49 mg/L FEU B-Type Natriuretic Peptide 621.41 0-100 pg/mL Lipase 23 12-53 U/L Assessment NSTEMI, rule out coronary artery disease Rule out structural heart disease Hypertension Dyslipidemia Sepsis Acute respiratory failure secondary to pneumonia Type 2 diabetes mellitus Morbid obesity Plan/Recommendation We will continue with the following plan/recommendations (Dr. Kumari): * Transthoracic echocardiogram to evaluate cardiac function wall motion * Chest pain protocol * JULIANE score: 4 points * HEART score: 8 points (high score) * Continue heparin drip per ACS protocol * Close Cardiac surveillance Case discussed with . Given the patient's clinical presentation, elevated troponin level, and comorbidities, we will recommend for the patient to undergo a coronary angiogram with left heart catheterization.The procedure was discussed with the patient in full detail including risks and benefits. Risks include but are not limited to bleeding, contrast-induced nephropathy, stroke, and even . The patient understands and is agreeable to undergo the procedure. We will tentatively schedule the patient on 02/22/2025 with improved respiratory status. Thank you for allowing us to care for this patient. Please call with any questions or concerns. Critical care time spent: 44 minutes This medical document was created using an electronic medical record system with voice recognition software and computerized dictation system. Although this document has been carefully reviewed, there might still be some phonetic and typographical errors. Occasional wrong-word or ``sound-alike substitutions may have occurred due to the inherent limitations of voice recognition software. These areas are purely typographical due to imperfections of the software programs and do not reflect any compromise in the patient's medical care. Please read the chart carefully and recognize, using context, where these substitutions have occurred. Plan discussed with: Patient NYHA Physical activity limitations: NA Date of Service: Feb 21, 2025 Billing Provider: DARSHAN PERRY Cardiology Common Codes: [id number] INP/OBS CARE (High) Cardiology Consultation Codes: [id number] CONSULT <45MIN DARSHAN PERRY Feb 21, 2025 09:16
[2025-02-21 11:28] LABS: INR 1.08 (0.9-1.15); Partial Thromboplastin Time 65.1 SEC (24.5-34.5); Prothrombin Time 11.4 sec (9.3-11.8)
[2025-02-21] MEDS: FAMOTIDINE (10MG/ML) 2ML VL IV SCH (11:51)
[2025-02-21] MEDS: FUROSEMIDE 40 MG/4 ML VIAL IV SCH ×2 (11:51→18:08)
[2025-02-21] MEDS: CARVEDILOL 3.125 MG TAB PO SCH (11:51)
--- NOTE | 2025-02-21 13:52 | DVHPNRES ---
Progress Note Date Seen: Feb 21, 2025 Resident Creating Document: KELLY GALAVIZ RESIDENT Has the PT tested + for MRSA If YES, has PT been informed?: No Medical Necessity Reason Pt with a Central, PICC or Fol: No Subjective Review of Systems Mr. Rd Parada is a 75-year-old male with a past medical history of type 2 diabetes mellitus, hypertension, and hyperlipidemia who presented to the emergency department with progressively worsening shortness of breath over the past several days. He also reports generalized weakness, a dry cough, and intermittent, mild, non-radiating chest discomfort, described as tightness rather than sharp pain. The chest discomfort is not clearly exertional and was not associated with diaphoresis, palpitations, or syncope. On arrival, the patient was found to be in acute respiratory distress, requiring BiPAP support, later transitioned to a 10L Oximizer. Physical exam revealed mild wheezing on auscultation, and a chest X-ray demonstrated patchy multifocal consolidation predominantly in the right lung, consistent with community- acquired pneumonia. He was started on IV broad-spectrum coverage. workup: - Elevated troponin I levels with an initial value of 2,415 ng/L, peaking at 7,814 ng/L, without classic ischemic EKG changes or ST elevation consistent with a sci-PB-etybwherw myocardial infarction (NSTEMI). - Lactic acidosis, with an elevated lactate level. - Acute kidney injury and anemia, with a hemoglobin of 10.8 g/dL, approaching macrocytic range. - D-dimer elevated at 1.86 mcg/mL, though a CT pulmonary angiogram was deferred given stable oxygenation and no definitive signs of PE on clinical assessment or ABG. The patient was evaluated by cardiology, and given his high HEART score of 8 and STEMI score of 4, he was started on ACS protocol, including continuous cardiac monitoring, heparin drip, and planned for coronary angiography and left heart catheterization. An echocardiogram showed: - LVEF of 50% - RVSP of 56 mmHg, concerning for moderate to severe pulmonary hypertension - No regional wall motion abnormalities were definitively identified, though assessment was limited due to patients tachypnea. The patient remains hemodynamically stable but continues to require oxygen support. Review of Systems (ROS): - Constitutional: Positive for fatigue and weakness. No fever or chills reported - Cardiac: Mild chest discomfort, no palpitations or syncope - Respiratory: Positive for dyspnea and dry cough, no hemoptysis - GI: No abdominal pain, nausea, or vomiting - : No dysuria, hematuria, or changes in urine output (noted ERIC on labs) - Neuro: No headache, dizziness, or focal neurological deficits - Skin: No rash, cyanosis, or diaphoresis Patient reports: No new complaints Changes from previous H/P or p: No Changes Objective vital signs Vital Sign Date Time Temp Pulse Resp B/P (MAP) Pulse Ox O2 Delivery O2 Flow Rate FiO2 02/21/25 13:00 82 28 121/64 (83) 94 02/21/25 12:00 98.6 98.6 02/21/25 08:27 Oxymizer 8 64 64 Total Intake and Output 02/20/25 02/20/25 02/21/25 15:00 23:00 07:00 Intake Total 850 ml 835 ml Output Total 500 ml Balance 850 ml 335 ml medications Current Medications Medications Dose Ordered Sig/Vianney Route Start Time Stop Time Status Last Admin Dose Admin Vancomycin HCl 0 ml @ 0 mls/hr UD IV 02/20/25 19:15 Furosemide 40 mg DAILY IV 02/21/25 10:00 02/21/25 11:51 40 MG Famotidine 20 mg Q12HR IV 02/21/25 10:00 02/21/25 11:51 20 MG Methylprednisolone Sodium Succinate 40 mg Q8HR IV 02/21/25 06:00 02/21/25 05:34 40 MG Piperacillin Sod/ Tazobactam Sod 100 ml @ 25 mls/hr Q8HR IV 02/21/25 06:00 02/21/25 05:35 25 MLS/HR Albuterol 2.5 mg Q4HPRN PRN NEB 02/21/25 02:30 Ipratropium Moncure 0.5 mg Q4HPRN PRN NEB 02/21/25 02:30 Heparin Sodium/ Dextrose 250 ml @ 10 mls/hr Q24H IV 02/21/25 04:30 02/21/25 04:25 10 MLS/HR Diagnostic Test (Pha) 1 strip IQ4HR 02/21/25 04:00 02/21/25 12:28 1 STRIP Insulin Human Regular IQ4HR SC 02/21/25 04:00 02/21/25 12:27 3 UNITS Dextrose 50 ml UD PRN IV 02/21/25 02:30 Sodium Chloride 1,000 ml @ 60 mls/hr [id number] IV 02/21/25 02:30 02/21/25 02:53 60 MLS/HR Acetaminophen/ Hydrocodone Bitart 1 tab Q4HP PRN PO 02/21/25 02:30 Ondansetron HCl 4 mg Q4HP PRN IV 02/21/25 02:30 Docusate Sodium 100 mg BIDPRN PRN PO 02/21/25 02:30 Acetaminophen 650 mg Q6HP PRN PO 02/21/25 02:30 Carvedilol 3.125 mg Q12HR PO 02/21/25 10:00 02/21/25 11:51 3.125 MG Nitroglycerin 0.4 mg Q5MINP PRN SL 02/21/25 04:45 Morphine Sulfate 2 mg Q30M PRN IV 02/21/25 04:45 Examination Physical Exam: General: Elderly male in mild respiratory distress, alert and oriented 3 Vitals: Tachypneic, requiring 10L Oximizer; BP and HR stable HEENT: No JVD, mucous membranes moist Lungs: Mild diffuse wheezing, decreased breath sounds at right base Cardiac: Regular rate and rhythm, no murmurs or rubs, no S3/S4 appreciated Abdomen: Soft, non-tender, no hepatosplenomegaly Extremities: No edema or calf tenderness Neuro: Grossly non-focal Skin: No cyanosis, pallor, or diaphoresis laboratory and microbiology Laboratory Tests 02/21/25 03:05 Test 02/21/25 03:05 Range/Units Serum Glucose 263 H 74-106 mg/dL Problem List/Assessment/Plan Problem List/Assessment/Plan #NSTEMI, rule out coronary artery disease #Hypertension #Dyslipidemia #Sepsis secondary to suspected multifocal pneumonia #Acute respiratory failure secondary to pneumonia #Type 2 diabetes mellitus #Morbid obesity #Pulmonary hypertension, RVSP 56 mmHg on echo #Acute kidney injury due to VMN #Anemia (likely normocytic or macrocytic) Plan - coronary angiogram with left heart catheterization, tomorrow - Lasix 40 b.i.d. IV - Continue antibiotics vancomycin and piperacillin tazobactam - Carvedilol - Heparin drip per ACS protocol - Insulin sliding scale protocol - strict I&o case discussed with Dr. foster Goals of care discussed with the patient for 32 minutes Code status: Full code Plan discussed with: Patient Date of Service: Feb 21, 2025 Billing Provider: AUDREY FOSTER MD Common Visit Codes: 01106-HKHBHQPHCZ INP/OBS CARE(HIGH) KELLY GALAVIZ RESIDENT Feb 21, 2025 13:52 AUDREY FOSTER MD Feb 22, 2025 10:22
--- NOTE | 2025-02-21 14:11 | DVHSR ---
APPROVED REPORT EXAM: Two-dimensional and M-mode echocardiogram with Doppler and color Doppler. Blood Pressure: 121/68 mmHg INDICATION CHF exacerbation, unspecified RISK FACTORS Height: 68, Weight: 260 DIMENSIONS LVDd6.0 (3.8-5.7cm)LA (2D)4.6 (1.9-4.0cm)Aortic Root4.2 (2.0-3.7cm) LVDs4.5 (2.5-4.0cm)LA (MM) (1.9-4.0cm)Aortic Cusp Exc1.5 (1.5-2.0cm) EF (%) 50.0 (55-70%)Rt. Atrium4.7 (1.9-4.0cm)Asc. Aorta cm Mitral Valve MitralMitral Stenosis E wave1.17m/sMV Mean GR.2mmHg A wave0.86m/sMV Peak GR.95mmHg E/A ratio1.42D MVAcm2 DECEL [id number] 1/2 Timems Aortic Valve Aortic ValveAortic Stenosis V10.74m/Breanna Mean GR.5mmHg V21.54m/Breanna Peak GR.10mmHg LVOT Diameter2.2 (1.8-2.4cm)Doppler AVA1.83cm2 AI P 1/2 Osoq871.15ms Pulmonic Valve V20.91m/s Tricuspid Valve TR Velocity2.93m/s [id number] Conclusion Technically good study. Sinus rhythm. Biatrial enlargement. Aortic root enlargement. Valves appear to be structurally normal. Left ventricular function is diminished. EF is about 45% with anterior apical hypokinesis of moderat e degree. Moderate tricuspid regurgitation. Trace aortic insufficiency No pericardial effusion masses or vegetations. Trace mitral insufficiency with moderate tricuspid regurgitation and pulmonary hypertension. No pericardial effusion masses or vegetations.
[2025-02-21] MEDS ORDERED: VANCOMYCIN 750MG KIT 100 ML IV SCH (15:15)
[2025-02-21 17:00] LABS: INR 1.03 (0.9-1.15); Partial Thromboplastin Time 67.3 SEC (24.5-34.5); Prothrombin Time 10.9 sec (9.3-11.8)
[2025-02-21] MEDS: VANCOMYCIN 750MG KIT 100 ML IV SCH (19:39)
[2025-02-21] MEDS: VANCOMYCIN 1GM/250ML KIT 0 ML IV ONE (19:40)
[2025-02-21 23:09] LABS: INR 1.03 (0.9-1.15); Partial Thromboplastin Time 52.9 SEC (24.5-34.5); Prothrombin Time 10.9 sec (9.3-11.8)
[2025-02-21 23:58] LABS: Urine Bacteria None Seen /hpf (None Seen)
[2025-02-22] VITALS (21 sets, daily range): BP systolic 100–147; BP diastolic 50–84; PULSE 67–109; RESP 14–24; TEMP 97.8–98.2; O2SAT 95–99
[2025-02-22 00:32] LABS: Urine Blood 3+ /uL (Negative); Urine Clarity Turbid (Clear); Urine Color Colorless (Yellow); Urine Mucus FEW (None Seen); Urine Protein, UAD TRACE (Negative); Urine Specific Gravity 1.012 (1.001-1.035); Urine Squamous Epithelial Cell FEW /hpf (<5); Urine Urobilinogen Normal (Negative); Urine WBC 2 /HPF (0-3)
[2025-02-22 05:06] LABS: Basophils # (auto) 0 10 ^3/uL (0-0.2); Eosinophils # (auto) 0 10 ^3/uL (0-0.8); Mean Corpuscular Hgb Conc. 34.8 g/dL (32.0-36.0); Monocytes # (auto) 0.6 10 ^3/uL (0-1.3)
[2025-02-22 05:07] LABS: Basophils % (auto) 0.1 % (0.0-2.0); Hematocrit 30.7 % (41.0-53.0); Hemoglobin 10.7 g/dL (13.5-17.5); Lymphocytes # (auto) 0.6 10 ^3/uL (0.4-5.4); Lymphocytes % (auto) 7.8 % (10.0-50.0); Mean Corpuscular Hemoglobin 34.6 pg (28.0-32.0); Mean Corpuscular Volume 99.4 fL (80.0-100.0); Monocytes % (auto) 8.1 % (0.0-12.0); Neutrophils # (auto) 6.1 10 ^3/uL (1.6-8.6); Nucleated Red Blood Cells % 0.1 %; Platelet Count (auto) 208 10^3/uL (140-450); Red Blood Cells 3.08 10^6/uL (4.5-5.90); Red Cell Distribution Width 14.1 % (11.8-14.3); White Blood Cell 7.3 10^3/uL (4.4-10.8)
[2025-02-22 05:24] LABS: Albumin 4.4 g/dL (3.2-4.8); Alkaline Phosphatase 100 U/L (46-116); Anion Gap 12 (5-15); BUN/Creatinine Ratio 41.2 (10.0-20.0); Calcium 9.6 mg/dL (8.7-10.4); Carbon Dioxide 22 mmol/L (20-31); Chloride 107 mmol/L (98-107); INR 1.04 (0.9-1.15); Partial Thromboplastin Time 55.8 SEC (24.5-34.5); Sodium 141 mmol/L (136-145); Total Protein 6.8 g/dL (5.7-8.2)
[2025-02-22 05:25] LABS: Bilirubin, Total 0.8 mg/dL (0.2-1.0)
[2025-02-22 05:26] LABS: Alanine Aminotransferase 43 U/L (7-40); Aspartate Aminotransferase 140 U/L (13-40); Blood Urea Nitrogen 42 mg/dL (9-23); Glucose 177 mg/dL (74-106)
--- NOTE | 2025-02-22 05:28 | DVH ---
EXAM: CT HEAD WITHOUT CONTRAST INDICATION: INCREASED CONFUSION FROM BASELINE TECHNIQUE: CT of the head without intravenous contrast. Coronal and sagittal reformatted images are s ubmitted. Radiation Dose : 1. Head: CT Dose: CTDI volume is 67.72 mGy. Dose-length product is 1085.19 mGy*cm The dose indicators for CT are the volume Computed Tomography (CT) Dose Index (CTDIvol) and the Dose Length Product (DLP), and are measured in units of mGy and mGy-cm, respectively. These indicators are not patient dose, but values generated from the CT scanner acquisition factors. The report includes radiation exposure data for exposures received during this examination. All CT scans at this medical facility are performed using dose modulation techniques as appropriate to a performed exam including the following: Automated exposure control was utilized; adjustment of the MA and/or KV according to patient size; and use of iterative reconstruction technique. COMPARISON: CT HEAD WITHOUT CONTRAST on DOS: 12/30/24 FINDINGS: There is no evidence of acute intracranial hemorrhage, extra-axial collection, mass effect, midline s hift, herniation or hydrocephalus. The ventricles, sulci and cisterns are age appropriate. The hilario-white differentiation is intact. The mastoid air cells are clear. Mild mucosal thickening in the maxillary sinuses. No depressed calvarial fracture. The surrounding soft tissues are unremarkable. IMPRESSION: 1. No evidence of acute intracranial abnormality.
[2025-02-22] MEDS: IODIXANOL 320MG/ML 100ML BTL IV ONE (07:12)
[2025-02-22] MEDS: LIDOCAINE 2%HCL (LOCAL ANESTH.) INJ 20ML MDV ONE (07:25)
[2025-02-22] MEDS: MIDAZOLAM HCL 2MG/2ML 2ml VIAL (1mg/ml) ONE (07:25)
[2025-02-22] MEDS: fentaNYL CITRATE 100 MCG/2 ML VL ONE (07:25)
[2025-02-22] MEDS: VERAPAMIL 2.5MG/ML INJ 2ML VIAL IV ONE (07:25)
[2025-02-22] MEDS: ANGIOMAX 250 MG VIAL IV ONE (07:25)
[2025-02-22] MEDS: SODIUM CHL 0.9% 0 ML ONE (07:26)
[2025-02-22] MEDS: ATROPINE SULF 1 MG/10ml SYR ONE (08:04)
[2025-02-22] MEDS: HEPARIN SODIUM (PORCINE) 5000 UNITS/ML 1ML VIAL ONE (08:16)
--- NOTE | 2025-02-22 08:49 | DVHOP2 ---
Operative Report - 2 Report Details Date: 02/22/25 Preop Diagnosis: Non ST-elevation myocardial infarction. Postop Diagnosis: Coronary artery disease. Severe left main disease. Surgeon: Татьяна Kumari MD Anesthesiologist: Conscious sedation Anesthesia: Mac, Local ( Versed and fentanyl ordered by me. I personally observed and monitored the patient throughout the entirety of the procedure.) Consent: The patient was informed of the risks and benefits of the procedure. These include but are not limited to complications of anesthesia, postoperative infection, incomplete relief of symptoms, recurrence of symptoms, damage to blood vessels, nerves and tendons, deep venous thrombosis, pulmonary embolism a nd possible need for repeat surgery in the future. Complications: No complications Estimated Blood Loss: 10 cc Findings: Severe left main disease. Indications for Surgery: Non ST-elevation myocardial infarction / acute coronary syndrome Name of Procedure Performed Left heart catheterization bilateral cine coronary angiography. Left ventriculography. Procedure Details Procedure Details: Prior local anesthesia with 2% lidocaine to the right wrist and full informed consent obtained the patient was prepped and draped in usual fashion followed by placement of the six Wolof sheath. This was done under fluoroscopic and ultras ound guidance. We then placed a Faisal catheter and performed ventriculography and cannulation of both right and left coronary ostia. No complications. Hemodynamics: Aortic blood pressure was 130/70 end-diastolic pressure was 20. There was no gradient across the aortic valve on pullback. Coronary anatomy : The RCA is a large vessel it is normal in its proximal mid and distal segments with only mild plaquing. PDA and posterolateral branches appeared to be within normal limits. Left main is large . It is normal in its proximal portion. There is plaquing and haziness in the mid left main. The distal left main has a significant stenosis involving the circumflex and LAD. There was about an 90-90% stenosis of the distal left main it appears to be a ruptured plaque with haziness. Left anterior descending has moderate plaquing throughout. The 1st diagonal as a 99% subtotal stenosis at its proximal and mid section. The circumflex at the ostium has significant disease involving and extending into the left main. The proximal and otherwise mid to distal circumflex on marginals are within normal limits Ventriculography: Ventriculography was performed in the NEWMAN projection showing an EF of about 55%. Impression: Elevated left ventricular end-diastolic pressure at rest. Normal left ventricular ejection fraction. Severe left main disease and diagonal disease and bifurcation disease of the LAD and circumflex. Recommendations: Patient will be transferred for coronary bypass surgery. Condition Guarded Disposition Still a Patient Date of Service: Feb 22, 2025 Billing Provider: ТАТЬЯНА KUMARI Sr., MD Cardiology Common Codes: 23806-BEWCMAA INP/OBS CARE (High) Cardiology Procedure Codes: 59556-HPPRXR VESSEL W/I VASC FAM, 97296-ADBS HEART CATH W/INTRA INJ ТАТЬЯНА KUMARI Sr., MD Feb 22, 2025 08:49
--- NOTE | 2025-02-22 10:08 | ECG ---
[facility] Test Date: 2025-02-20 Test Time: 17:59:22 Pat Name: ТАТЬЯНА DELEON Department: ER Room: [address] [place] [address] Gender: M Call Center Dispatcher: PEBBLES : [id number] Requested By: HILDA LOJA Order Number: [id number] Reading MD: Measurements Intervals [place] Rate: 107 P: 0 PA: 131 QRS: -66 QRSD: 138 T: 89 QT: 368 QTc: 491 Interpretive Statements Sinus tachycardia Supraventricular bigeminy Right bundle branch block Anteroseptal infarct, age indeterminate Please click the below link to view image of tracing.
[2025-02-22 18:03] LABS: INR 1.07 (0.9-1.15); Partial Thromboplastin Time 64.9 SEC (24.5-34.5); Prothrombin Time 11.3 sec (9.3-11.8)
--- NOTE | 2025-02-22 18:31 | DVHDSRES ---
Discharge Summary Date of Admission Resident Creating Document: KELLY GALAVIZ RESIDENT Feb 21, 2025 at 04:41 Date of Discharge: Feb 22, 2025 Admitting Diagnosis acute chf exacerbation Labs/Diagnostic Data: Laboratory Results Test 02/22/25 17:20 02/22/25 16:26 02/22/25 04:55 02/21/25 23:56 POC Glucose 197 mg/dl (70-106) White Blood Count 7.3 10^3/uL (4.4-10.8) Red Blood Count 3.08 10^6/uL (4.5-5.90) Hemoglobin 10.7 g/dL (13.5-17.5) Hematocrit 30.7 % (41.0-53.0) Mean Corpuscular Volume 99.4 fL (80.0-100.0) Mean Corpuscular Hemoglobin 34.6 pg (28.0-32.0) Mean Corpuscular Hemoglobin Concent 34.8 g/dL (32.0-36.0) Red Cell Distribution Width 14.1 % (11.8-14.3) Platelet Count 208 10^3/uL (140-450) Mean Platelet Volume 8.2 fL (6.9-10.8) Neutrophils (%) (Auto) 84.0 % (37.0-80.0) Lymphocytes (%) (Auto) 7.8 % (10.0-50.0) Monocytes (%) (Auto) 8.1 % (0.0-12.0) Eosinophils (%) (Auto) 0.0 % (0.0-7.0) Basophils (%) (Auto) 0.1 % (0.0-2.0) Neutrophils # (Auto) 6.1 10 ^3/uL (1.6-8.6) Lymphocytes # (Auto) 0.6 10 ^3/uL (0.4-5.4) Monocytes # (Auto) 0.6 10 ^3/uL (0-1.3) Eosinophils # (Auto) 0 10 ^3/uL (0-0.8) Basophils # (Auto) 0 10 ^3/uL (0-0.2) Nucleated Red Blood Cells 0.1 % Sodium Level 141 mmol/L (136-145) Potassium Level 4.0 mmol/L (3.5-5.1) Chloride Level 107 mmol/L (98-107) Carbon Dioxide Level 22 mmol/L (20-31) Anion Gap 12 (5-15) Blood Urea Nitrogen 42 mg/dL (9-23) Creatinine 1.02 mg/dL (0.700-1.30) Glomerular Filtration Rate Calc 76 mL/min (>90) BUN/Creatinine Ratio 41.2 (10.0-20.0) Serum Glucose 177 mg/dL (74-106) Calcium Level 9.6 mg/dL (8.7-10.4) Total Bilirubin 0.8 mg/dL (0.2-1.0) Aspartate Amino Transferase (AST) 140 U/L (13-40) Alanine Aminotransferase (ALT) 43 U/L (7-40) Alkaline Phosphatase 100 U/L (46-116) Total Protein 6.8 g/dL (5.7-8.2) Albumin 4.4 g/dL (3.2-4.8) Urine Color Colorless (Yellow) Urine Clarity Turbid (Clear) Urine pH 5.0 (5.0-9.0) Urine Specific [place] 1.012 (1.001-1.035) Urine Protein Trace (Negative) Urine Ketones Trace (Negative) Urine Blood 3+ /uL (Negative) Urine Nitrite Negative (Negative) Urine Bilirubin Negative (Negative) Urine Urobilinogen Normal mg/dL (Negative) Urine Leukocyte Esterase Negative /uL (Negative) Urine RBC 675 /hpf (0 - 3) Urine Microscopic WBC 2 /HPF (0-3) Urine Squamous Epithelial Cells Few /hpf (<5) Urine Bacteria None seen /hpf (None Seen) Urine Mucus Few (None Seen) Urine Glucose Normal mg/dL (Normal) Test 02/21/25 14:08 02/21/25 12:10 02/21/25 08:15 02/21/25 03:05 Random Vancomycin Level 7.9 ug/mL (5-10) Troponin I High Sensitivity 05499 ng/L (</=54) Blood Gas Specimen Type Arterial Blood Gas Sample Site Right radial Blood Gas Patient Temperature 37.0 Arterial Blood Date Drawn [id number] Arterial Blood pH 7.393 (7.350-7.450) Arterial Blood Partial Pressure CO2 31.2 mmHg (35.0-48.0) Arterial Blood Partial Pressure O2 83.4 mmHg (83.0-108.0) Arterial Blood HCO3 18.6 mmol/L (21.0-28.0) Arterial Blood Oxygen Saturation 95.6 % (94.0-98.0) Arterial Blood Base Excess -5.4 mmol/L (-2.0-3.0) Arterial Blood Oxyhemoglobin 95.0 % (94.0-98.0) Arterial Blood Carboxyhemoglobin 0.3 % (0.5-1.5) Arterial Blood Methemoglobin 0.3 % (0.0-1.5) Silverio Test Modified Blood Gas Total Hemoglobin 11.50 g/dL (13.5-17.5) Blood Gas Set Respiration Rate 12.0 Blood Gas Modality Mask - bipap Blood Gas Spontaneous Rate 32 FiO2 % 60.0 Blood Gas EPAP 5 Blood Gas IPAP 12 Hemoglobin A1c 6.4 % A1C (<5.7) Magnesium Level 2.3 mg/dL (1.6-2.6) Triglycerides Level 75 mg/dL (< 150) Cholesterol Level 95 mg/dL (< 200) LDL Cholesterol 36 mg/dL (< 100) HDL Cholesterol 43 mg/dL (40-59) Thyroid Stimulating Hormone (TSH) 0.65 uIU/mL (0.55-4.78) Test 02/20/25 19:10 02/20/25 17:55 Lactic Acid Level 4.1 mmol/L (0.4-2.0) D-Dimer, Quantitative 1.96 mg/L FEU (0.0-0.49) B-Type Natriuretic Peptide 621.41 pg/mL (0-100) Lipase 23 U/L (12-53) Other Laboratory Tests 02/22/25 04:55 Brief Hx & Hospital Course: HPI and Hospital course: Mr. Татьяна Deleon, a 75-year-old male with significant cardiovascular risk factors, presented with progressive dyspnea, fatigue, and intermittent, non- radiating chest tightness over several days. Upon arrival, he was found to be in acute hypoxic respiratory failure and required BiPAP support, later transitioned to 10L Oximizer. A chest X-ray demonstrated multifocal consolidation, and he was diagnosed with community-acquired pneumonia, for which broad-spectrum IV antibiotics (vancomycin and cefepime) were initiated. Cardiac biomarkers were notably elevated (initial troponin 2,415 ng/L, peak 7,814 ng/L and the >20,000) with no ischemic changes on EKG, consistent with a non-ST elevation myocardial infarction (NSTEMI). He was managed under the ACS protocol, including continuous cardiac monitoring and a heparin infusion. An echocardiogram showed: LVEF 50% (preserved systolic function) RVSP 56 mmHg (moderate to severe pulmonary hypertension) No wall motion abnormalities, though evaluation was limited due to tachypnea Disposition: Given the significant troponin elevation, echocardiographic findings, and underlying coronary artery disease, cardiology evaluated the patient and recommended coronary angiography, which demonstrated severe left main disease and diagonal disease and bifurcation disease of the LAD and circumflex Due to the complexity of his coronary anatomy and need for surgical intervention, Mr. Deleon is being transferred to [facility] for higher level of cardiac care. Operations or Procedures Patient: ТАТЬЯНА DELEON Acct: [id number] : 1950 Loc: OVERFLOW Age/Sex: 75/M Room: [address] [place] [address] / Bed: A Attending Phy: KELLY GALAVIZ RESIDENT Operative Report - 2 Report Details Date: 02/22/25 Preop Diagnosis: Non ST-elevation myocardial infarction. Postop Diagnosis: Coronary artery disease. Severe left main disease. Surgeon: Татьяна Cesar MD Anesthesiologist: Conscious sedation Anesthesia: Mac, Local ( Versed and fentanyl ordered by me. I personally observed and monitored the patient throughout the entirety of the procedure.) Consent: The patient was informed of the risks and benefits of the procedure. These include but are not limited to complications of anesthesia, postoperative infection, incomplete relief of symptoms, recurrence of symptoms, damage to blood vessels, nerves and tendons, deep venous thrombosis, pulmonary embolism and possible need for repeat surgery in the future. Complications: No complications Estimated Blood Loss: 10 cc Findings: Severe left main disease. Indications for Surgery: Non ST-elevation myocardial infarction / acute coronary syndrome Name of Procedure Performed Left heart catheterization bilateral cine coronary angiography. Left ventriculography. Procedure Details Procedure Details: Prior local anesthesia with 2% lidocaine to the right wrist and full informed consent obtained the patient was prepped and draped in usual fashion followed by placement of the six Ecuadorean sheath. This was done under fluoroscopic and ultrasound guidance. We then placed a Faisal catheter and performed ventriculography and cannulation of both right and left coronary ostia. No complications. Hemodynamics: Aortic blood pressure was 130/70 end-diastolic pressure was 20. There was no gradient across the aortic valve on pullback. Coronary anatomy : The RCA is a large vessel it is normal in its proximal mid and distal segments with only mild plaquing. PDA and posterolateral branches appeared to be within normal limits. Left main is large . It is normal in its proximal portion. There is plaquing and haziness in the mid left main. The distal left main has a significant stenosis involving the circumflex and LAD. There was about an 90-90% stenosis of the distal left main it appears to be a ruptured plaque with haziness. Left anterior descending has moderate plaquing throughout. The 1st diagonal as a 99% subtotal stenosis at its proximal and mid section. The circumflex at the ostium has significant disease involving and extending into the left main. The proximal and otherwise mid to distal circumflex on marginals are within normal limits Ventriculography: Ventriculography was performed in the NEWMAN projection showing an EF of about 55%. Impression: Elevated left ventricular end-diastolic pressure at rest. Normal left ventricular ejection fraction. Severe left main disease and diagonal disease and bifurcation disease of the LAD and circumflex. Recommendations: Patient will be transferred for coronary bypass surgery. Condition Guarded Disposition 2 Still a Patient Date of Service: Feb 22, 2025 Billing Provider: ТАТЬЯНА CESAR Sr., MD Cardiology Common Codes: 35864-[id number] INP/OBS CARE (High) Cardiology Procedure Codes: 90158-[id number] VESSEL W/I VASC FAM, 00425-UBBP HEART CATH W/INTRA INJ ТАТЬЯНА CESAR Sr., MD Feb 22, 2025 08:49 DICTATED BY:ТАТЬЯНА CESAR Sr., MD DICTATED DATE/TIME:02/22/25 0849 ELECTRONICALLY SIGNED BY:ТАТЬЯНА CESAR Sr., MD 02/22/25 0849 ELECTRONICALLY CO-SIGNED BY: [place] [id number] Ph: [phone] DIAGNOSTIC IMAGING Diagnostic Imaging Report : [id number] Signed PATIENT: ТАТЬЯНА DELEON ACCT: [id number] UNIT: [id number] : 1950 LOC: OVERFLOW ROOM / BED: [address] [place] [address] / A AGE / SEX: 75 / M ADM STATUS: ADM IN SERVICE 3437 ORDERING PHYSICIAN: ANAHI CAMP AGACNP PROCEDURE(s): HWOCT - HEAD WITHOUT CONTRAST REASON: INCREASED CONFUSION FROM BASELINE ORDER NUMBER(s): [id number], ACCESSION NUMBER(s): [id number] EXAM: CT HEAD WITHOUT CONTRAST INDICATION: INCREASED CONFUSION FROM BASELINE TECHNIQUE: CT of the head without intravenous contrast. Coronal and sagittal reformatted images are submitted. Radiation Dose : 1. Head: CT Dose: CTDI volume is 67.72 mGy. Dose-length product is 1085.19 mGy*cm The dose indicators for CT are the volume Computed Tomography (CT) Dose Index (CTDIvol) and the Dose Length Product (DLP), and are measured in units of mGy and mGy-cm, respectively. These indicators are not patient dose, but values generated from the CT scanner acquisition factors. The report includes radiation exposure data for exposures received during this examination. All CT scans at this medical facility are performed using dose modulation techniques as appropriate to a performed exam including the following: Automated exposure control was utilized; adjustment of the MA and/or KV according to patient size; and use of iterative reconstruction technique. COMPARISON: CT HEAD WITHOUT CONTRAST on DOS: 12/30/24 FINDINGS: There is no evidence of acute intracranial hemorrhage, extra-axial collection, mass effect, midline shift, herniation or hydrocephalus. The ventricles, sulci and cisterns are age appropriate. The hilario-white differentiation is intact. The mastoid air cells are clear. Mild mucosal thickening in the maxillary sinuses. No depressed calvarial fracture. The surrounding soft tissues are unremarkable. IMPRESSION: 1. No evidence of acute intracranial abnormality. ATED BY: KARSON AQUINO MD DICTATED DATE/TIME: 02/22/25524 SIGNED BY: KARSON AQUINO MD SIGNED DATE/TIME: 02/22/25524 CC: [place] [id number] Ph: [phone] DIAGNOSTIC IMAGING Diagnostic Imaging Report : [id number] Signed PATIENT: ТАТЬЯНА DELEON ACCT: [id number] UNIT: [id number] : 1950 LOC: ER ROOM / BED: / AGE / SEX: 75 / M ADM STATUS: REG ER SERVICE 49 ORDERING PHYSICIAN: HILDA LOJA PAC PROCEDURE(s): CXRP - CHEST PORTABLE REASON: Shortness of breath ORDER NUMBER(s): [id number], ACCESSION NUMBER(s): [id number] CHEST RADIOGRAPH Indication: Shortness of breath Technique: Single frontal view of the chest was obtained COMPARISON: None FINDINGS: Lines and Tubes: None Lungs: Patchy multifocal consolidation is noted, predominantly in the right lung. Pleura: No effusion. No pneumothorax. Cardiomediastinal contours: Cardiomegaly. Bones: Unremarkable IMPRESSION: 1. Patchy multifocal consolidation concerning for pneumonia, predominantly in the right lung. ATED BY: NADEEM COCHRAN MD DICTATED DATE/TIME: 02/20/251822 SIGNED BY: NADEEM COCHRAN MD SIGNED DATE/TIME: 02/20/251822 CC: Condition at Discharge: Higher Level of Care Final Diagnosis/Problems List #NSTEMI #ACS due to Severe left main disease and diagonal disease and bifurcation disease of the LAD and circumflex. #Hypertension #Dyslipidemia #Sepsis secondary to suspected multifocal pneumonia #Acute respiratory failure secondary to pneumonia #Type 2 diabetes mellitus #Morbid obesity #Pulmonary hypertension, RVSP 56 mmHg on echo #Acute kidney injury due to VMN #Anemia (likely normocytic or macrocytic) Discharge Disposition: Acute Care Facility SNF Discharge Will this Physician continue t: No Discharge Instruct/Medications Diet: Cardiac 2g Na,low cholest Activity: Bed rest Follow Up/Referral: transfer to [facility] ( [place]) Discharge Statement: "Patient was advised to return to the ER or call 911 if any headaches, dizziness, shortness of breath, chest pain, abdominal pain, bleeding, fevers, or worsening of medical condition. Patient was counseled about treatment plan, medications, possible side effects, patientverbalized understanding. All questions were answered to the best of my ability. This discharge took greater then 30 minutes in planning, reviewing documentation, counseling the patient, and discussing with other team members." ASSESSMENT ASSESSMENT Assessment Coronary artery disease. Severe left main disease. Date of Service: Feb 22, 2025 Billing Provider: AUDREY FOSTER MD Common Visit Codes: [id number]/OBS DISCH DAY >30min KELLY GALAVIZ RESIDENT Feb 22, 2025 18:31 AUDREY FOSTER MD Feb 23, 2025 14:47
[2025-02-23] VITALS (21 sets, daily range): BP systolic 105–128; BP diastolic 54–68; PULSE 56–82; RESP 11–24; TEMP 97.3–98.5; O2SAT 94–100
[2025-02-23 07:23] LABS: Chloride 106 mmol/L (98-107); Potassium 3.5 mmol/L (3.5-5.1); Sodium 143 mmol/L (136-145)
[2025-02-23 07:24] LABS: Anion Gap 12 (5-15); Carbon Dioxide 25 mmol/L (20-31)
[2025-02-23 07:25] LABS: Calcium 8.9 mg/dL (8.7-10.4)
[2025-02-23 07:30] LABS: BUN/Creatinine Ratio 43.9 (10.0-20.0); Blood Urea Nitrogen 50 mg/dL (9-23); Glucose 180 mg/dL (74-106)
[2025-02-23 07:32] LABS: INR 1.05 (0.9-1.15); Partial Thromboplastin Time 55.5 SEC (24.5-34.5); Prothrombin Time 11.1 sec (9.3-11.8)
[2025-02-23 07:39] LABS: Hematocrit 30.3 % (41.0-53.0); Hemoglobin 10.4 g/dL (13.5-17.5); Mean Corpuscular Hgb Conc. 34.5 g/dL (32.0-36.0); Mean Corpuscular Volume 98.7 fL (80.0-100.0); Platelet Count (auto) 224 10^3/uL (140-450); Red Blood Cells 3.07 10^6/uL (4.5-5.90); Red Cell Distribution Width 14.1 % (11.8-14.3); White Blood Cell 8.5 10^3/uL (4.4-10.8)
[2025-02-23 07:47] LABS: Basophils % (manual) 0 (0.0-2.0); Blast Cells 0; Eosinophils % (manual) 0 (0-7); Promyelocytes % 0; Reactive Lymphocytes 0
[2025-02-23] MEDS: VANCOMYCIN 750MG KIT 100 ML IV ONE (08:08)
--- NOTE | 2025-02-23 08:33 | DVHPN2 ---
Assessment/Plan Assessment/Plan ICU progress note 75 yo M with HTN, HLD, NIDDM s/p C with left main and multivessel disease Seen today during rounds, pending bed for HLOC to [facility] for CABG. Improving resp status, remains on heparin drip. Physical exam Alert oriented x3 Scatered rhonchi S1 S2 RRR Abdomen soft nontender Trace LE edema Labs, EKG, imaging reviewed Assessment and plan NSTEMI ACS s/p [facility] with left main, diag and bifurcation disease of LAD and LCx HTN HLD Acute respiratory failure Multifocal PNA GN vs GP HFpEF Acute diastolic heart failure pHTN likely group 2 Morbid obesity ERIC VMN resolved Normocytic anemia Remains on heparin drip HLOC transfer for CABG s/p vanc and zosyn maintain spo2> 94% deescalate abx to ceft and azithro Lasix daily maintain net -500 to 1L ASA Lipitor BB Lantus ISS FSx4 deescalate steroid and breathing treatments CT noncon chest Maintain glucose between 120-180 Maintain K 4 Ph 3 Mg 2 Condition critical Prognosis poor Full code Critical care time 45 minutes Plan discussed with: Patient Date of Service: Feb 23, 2025 Billing Provider: AUDREY OFSTER MD Common Visit Codes: [id number] CARE 30-74 MIN AUDREY FOSTER MD Feb 23, 2025 08:33
--- NOTE | 2025-02-23 08:35 | CONS ---
Pharmacy Clinical Information: From Heart Failure Fallout Report on CQM Application, Rd Person is a 75 year old male with PMH of HLD, HTN, DM. Lipid panel was WNL. LFTs are elevated. s/p LHC due to NSTEMI which revealed CAD. In patients older than 75 years of age with clinical ASCVD, it is reasonable to initiate moderate or high intensity statin therapy according to the 2018 cholesterol guidelines. CINDI MINER PHARMACIST Feb 23, 2025 08:35
[2025-02-23 08:53] LABS: Band Neutrophils % (manual) 1; Lymphocytes % (manual) 8 (10.0-50.0); Metamyelocytes % 2; Monocytes % (manual) 6 (0-12); Myelocytes % 1; Platelet Estimate Adequate
[2025-02-23 08:54] LABS: RBC Morphology Normal
--- NOTE | 2025-02-23 09:50 | DVHPN2 ---
Consult Progress Note Subjective Other Systems: Patient denies any cardiac symptoms at time of assessment Objective vital signs Vital Sign Date Time Temp Pulse Resp B/P (MAP) Pulse Ox O2 Delivery O2 Flow Rate FiO2 02/23/25 08:00 18 100 Nasal Cannula* 2 28 02/23/25 06:00 64 119/58 (78) 02/23/25 04:00 98.1 98.1 Total Intake and Output 02/22/25 02/22/25 02/23/25 15:00 23:00 07:00 Intake Total 528 ml 160 ml Output Total 700 ml 650 ml 1650 ml Balance -700 ml -122 ml -1490 ml medications Current Medications Medications Dose Ordered Sig/Vianney Route Start Time Stop Time Status Last Admin Dose Admin Famotidine 20 mg Q12HR IV 02/21/25 10:00 02/22/25 21:29 20 MG Heparin Sodium/ Dextrose 250 ml @ 10 mls/hr Q24H IV 02/21/25 04:30 02/22/25 19:55 10 MLS/HR Diagnostic Test (Pha) 1 strip IQ4HR 02/21/25 04:00 02/23/25 08:08 1 STRIP Insulin Human Regular IQ4HR SC 02/21/25 04:00 02/23/25 08:14 6 UNITS Dextrose 50 ml UD PRN IV 02/21/25 02:30 Acetaminophen 650 mg Q6HP PRN PO 02/21/25 02:30 Carvedilol 3.125 mg Q12HR PO 02/21/25 10:00 02/22/25 21:29 3.125 MG Nitroglycerin 0.4 mg Q5MINP PRN SL 02/21/25 04:45 Furosemide 40 mg BIDD IV 02/21/25 18:00 02/23/25 05:19 40 MG Examination: GENERAL:Normal, LUNGS:Normal, CVS:Normal, NEURO:Normal laboratory and microbiology Laboratory Tests 02/23/25 06:51 Test 02/23/25 06:51 Range/Units Serum Glucose 180 H 74-106 mg/dL Problem List/Assessment/Plan Problem List/Assessment/Plan NSTEMI with severe left main disease Chronic HFmrEF, NYHA class II-III Moderate tricuspid regurgitation Hypertension Dyslipidemia Acute respiratory failure secondary to pneumonia Moderate pulmonary hypertension Type 2 diabetes mellitus Morbid obesity Plan/Recommendation (Dr. Kumari): Transthoracic echocardiogram reveals EF of 45% with anterior apical hypokinesis.The patient underwent a coronary angiogram with left heart catheterization on 02/22/2025 which revealed severe left main disease and bifurcation disease of the LAD and circumflex. We will recommend for the patient to be transferred to higher level of care for possible coronary artery bypass surgery. The patient has been accepted to [facility]. We are currently awaiting bed availability. In the meantime, continue on heparin drip, lipid-lowering agent, and beta-tramaine. Thank you for allowing us to care for this patient. Please call with any questions or concerns. This medical document was created using an electronic medical record system with voice recognition software and computerized dictation system. Although this document has been carefully reviewed, there might still be some phonetic and typographical errors. Occasional wrong-word or ``sound-alike substitutions may have occurred due to the inherent limitations of voice recognition software. These areas are purely typographical due to imperfections of the software programs and do not reflect any compromise in the patient's medical care. Please read the chart carefully and recognize, using context, where these substitutions have occurred. Plan discussed with: Patient Date of Service: Feb 23, 2025 Billing Provider: DARSHAN PERRY Common Visit Codes: [id number] INP/OBS CARE(HIGH) DARSHAN PERRY Feb 23, 2025 09:50
[2025-02-23] MEDS ORDERED: DEXTROSE (50%) 50ML SYRG IV PRN (10:15)
--- NOTE | 2025-02-23 11:14 | DVH ---
Procedure: CT CHEST WITHOUT CONTRAST Reason for study/Clinical History: SOB Comparison Study: None available at time of dictation. TECHNIQUE: Multidetector CT of the chest was performed from the lung apices to the upper abdomen with out the use of intravenous contract. Axial, coronal and sagittal multiplanar reformats were performed . Radiation Dose Information: CT Dose: CTDI volume is 28.72 mGy. Dose-length product is 972.86 mGy*cm The dose indicators for CT are the volume Computed Tomography (CT) Dose Index (CTDIvol) and the Dose Length Product (DLP), and are measured in units of mGy and mGy-cm, respectively. These indicators are not patient dose, but values generated from the CT scanner acquisition factors. The report includes radiation exposure data for exposures received during this examination. FINDINGS: Lower neck: Unremarkable. Lungs: Multifocal airspace disease. Heart/Vascular Structures: Cardiomegaly. Coronary artery calcifications. Vascular calcifications of t he aorta. Lymph Nodes: No adenopathy Pleura: Small bilateral pleural effusions. Musculoskeletal: No acute osseous abnormality. Degenerative changes of the spine. Soft tissues: Normal. Upper abdomen: Limited portions of the upper abdomen are unremarkable. IMPRESSION: Cardiomegaly, multifocal airspace disease and small bilateral pleural effusions. Findings may represe nt pulmonary edema and/or superimposed multifocal infection. Radiation optimization: All CT scans at this facility use at least one of these dose optimization lily hniques: automated exposure control mA and/or kV adjustment per patient size (includes targeted exam s where dose is matched to clinical indication) or iterative reconstruction.
[2025-02-23] MEDS: ACCU-CHEK COMFORT CURVE STRIP VI SCH (11:37)
[2025-02-23] MEDS: FAMOTIDINE 20 MG TAB PO SCH (11:37)
[2025-02-23] MEDS: InsuLIN REG 1unit/0.01ml Soln (100units/ml) SC SCH ×2 (11:38→21:26)
[2025-02-24] VITALS (7 sets, daily range): BP systolic 121–144; BP diastolic 52–67; PULSE 59–88; RESP 16–19; TEMP 97.5–98.6; O2SAT 97–100
[2025-02-24 07:20] LABS: Chloride 107 mmol/L (98-107); Sodium 145 mmol/L (136-145)
[2025-02-24 07:21] LABS: Anion Gap 10 (5-15); Carbon Dioxide 28 mmol/L (20-31)
[2025-02-24 07:23] LABS: Basophils # (auto) 0 10 ^3/uL (0-0.2); White Blood Cell 10.8 10^3/uL (4.4-10.8)
[2025-02-24 07:25] LABS: Basophils % (auto) 0.3 % (0.0-2.0); Eosinophils # (auto) 0 10 ^3/uL (0-0.8); Eosinophils % (auto) 0.3 % (0.0-7.0); Hematocrit 28.6 % (41.0-53.0); Hemoglobin 9.9 g/dL (13.5-17.5); Lymphocytes # (auto) 1.4 10 ^3/uL (0.4-5.4); Lymphocytes % (auto) 13.3 % (10.0-50.0); Mean Corpuscular Hemoglobin 34.6 pg (28.0-32.0); Mean Corpuscular Hgb Conc. 34.7 g/dL (32.0-36.0); Mean Corpuscular Volume 99.5 fL (80.0-100.0); Neutrophils # (auto) 8.3 10 ^3/uL (1.6-8.6); Neutrophils % (auto) 77.1 % (37.0-80.0); Nucleated Red Blood Cells % 0.2 %; Platelet Count (auto) 219 10^3/uL (140-450); Red Blood Cells 2.87 10^6/uL (4.5-5.90)
[2025-02-24 07:27] LABS: Magnesium 2.3 mg/dL (1.6-2.6)
[2025-02-24 07:29] LABS: Blood Urea Nitrogen 43 mg/dL (9-23); Calcium 8.5 mg/dL (8.7-10.4); Glucose 155 mg/dL (74-106); Potassium 3.3 mmol/L (3.5-5.1)
[2025-02-24 08:22] LABS: INR 1.06 (0.9-1.15); Partial Thromboplastin Time 46.9 SEC (24.5-34.5); Prothrombin Time 11.2 sec (9.3-11.8)
[2025-02-24] MEDS: FUROSEMIDE 40 MG/4 ML VIAL IV SCH (09:34)
[2025-02-24] MEDS: HEPARIN DRIP/D5W 100UNITS/ML 250 ML IV SCH (09:38)
--- NOTE | 2025-02-24 09:46 | CONS ---
Pharmacy Clinical Information: Heparin per Pharmacy Spoke to JADA Adams regarding heparin dose change on 02/24/2025 at 09:15 Current dose: 1000 units/hr Current aPTT: 46.9 on 02/24/2025 at 06:20 Bolus: No Hold infusion for 1 hr: No Increase dose: 200 units/hr New dose: 1200 units/hr Date and time new dose started; 02/24/2025 at 0938 Next aPTT; 02/24/2025 at 1530 JADA Adams read back new dose: 1200 units/hr SHANKAR Mendenhall Feb 24, 2025 09:46
[2025-02-24] MEDS: ASPirin 81 mg TAB PO ONE (10:45)
--- NOTE | 2025-02-24 10:51 | DVHPN2 ---
Consult Progress Note Date Seen: Feb 24, 2025 Subjective Review of Systems: CVS:Normal, RESPIRATORY:Normal, NEURO:Normal Other Systems: Denies any cardiac symptoms Objective vital signs Vital Sign Date Time Temp Pulse Resp B/P (MAP) Pulse Ox O2 Delivery O2 Flow Rate FiO2 02/24/25 09:34 129/66 02/24/25 09:33 66 02/24/25 08:00 19 98 Nasal Cannula* 2 28 02/24/25 04:35 97.8 97.8 Total Intake and Output 02/23/25 02/23/25 02/24/25 15:00 23:00 07:00 Intake Total 300 ml 460 ml 250 ml Output Total 1475 ml 500 ml 500 ml Balance -1175 ml -40 ml -250 ml medications Current Medications Medications Dose Ordered Sig/Vianney Route Start Time Stop Time Status Last Admin Dose Admin Acetaminophen 650 mg Q6HP PRN PO 02/21/25 02:30 Carvedilol 3.125 mg Q12HR PO 02/21/25 10:00 02/24/25 09:33 3.125 MG Nitroglycerin 0.4 mg Q5MINP PRN SL 02/21/25 04:45 Famotidine 20 mg Q12HR PO 02/23/25 10:15 02/24/25 09:34 20 MG Diagnostic Test (Pha) 1 strip ACHS 02/23/25 11:30 02/24/25 06:30 1 STRIP Insulin Human Regular HS SC 02/23/25 22:00 02/23/25 21:26 4 UNITS Insulin Human Regular AC SC 02/23/25 11:30 02/24/25 06:30 2 UNITS Dextrose 50 ml UD PRN IV 02/23/25 10:15 Furosemide 40 mg DAILY IV 02/24/25 10:00 02/24/25 09:34 40 MG Heparin Sodium/ Dextrose 250 ml @ 12 mls/hr [id number] IV 02/24/25 09:15 02/24/25 09:38 12 MLS/HR Examination: LUNGS:Normal, CVS:Normal (NSR. 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 Kumari) Transthoracic echocardiogram revealed an EF of 45% with anterior apical hypokinesis. A coronary angiogram with left heart catheterization revealed severe left main disease and bifurcation disease of the LAD and circumflex for which the patient has been referred to higher level of care for cardiothoracic evaluation. In the meantime, continue on heparin drip, lipid-lowering agent, and beta-tramaine. Initiate ASA and hold Plavix therapy. Replete electrolytes as necessary. Continue ACS/chest pain protocol. Kindly call if in need to continue following up. Thank you for allowing us to care for this patient. This medical document was created using an electronic medical record system with voice recognition software and computerized dictation system. Although this document has been carefully reviewed, there might still be some phonetic and typographical errors. Occasional wrong-word or ``sound-alike substitutions may have occurred due to the inherent limitations of voice recognition software. These areas are purely typographical due to imperfections of the software programs and do not reflect any compromise in the patient's medical care. Please read the chart carefully and recognize, using context, where these substitutions have occurred. Plan discussed with: Patient, Other Date of Service: Feb 24, 2025 Billing Provider: NICOLE HERRERA Cardiology Common Codes: [id number] HOSP CARE(High NICOLE HERRERA Feb 24, 2025 10:51
[2025-02-24] MEDS: POTASSIUM CHL 20 Meq TABLET PO ONE (11:36)
[2025-02-24 16:26] LABS: INR 1.08 (0.9-1.15); Partial Thromboplastin Time 67.2 SEC (24.5-34.5); Prothrombin Time 11.4 sec (9.3-11.8)
--- NOTE | 2025-02-24 21:10 | DVHPN2 ---
Assessment/Plan Assessment/Plan Progress note 75 yo M with HTN, HLD, NIDDM s/p [facility] with left main and multivessel disease Seen today during rounds, HLOC to [facility] for CABG. remains on heparin drip. diurese to euvolemia. pending bed Physical exam Alert oriented x3 Scatered rhonchi S1 S2 RRR Abdomen soft nontender Trace LE edema Labs, EKG, imaging reviewed Assessment and plan NSTEMI ACS s/p [facility] with left main, diag and bifurcation disease of LAD and LCx HTN HLD Acute respiratory failure Multifocal PNA GN vs GP HFpEF Acute diastolic heart failure pHTN likely group 2 Morbid obesity ERIC VMN resolved Normocytic anemia Remains on heparin drip HLOC transfer for CABG s/p vanc and zosyn maintain spo2> 94% deescalate abx to ceft and azithro Lasix daily maintain net -500 to 1L ASA Lipitor BB Lantus ISS FSx4 deescalate steroid and breathing treatments CT noncon chest Maintain glucose between 120-180 Maintain K 4 Ph 3 Mg 2 Condition critical Prognosis poor Full code Plan discussed with: Patient Date of Service: Feb 24, 2025 Billing Provider: AUDREY FOSTER MD Common Visit Codes: [id number] INP/OBS CARE(HIGH) AUDREY FOSTER MD Feb 24, 2025 21:10
[2025-02-24] MEDS ORDERED: POTASSIUM EFFERVESENT TAB 25 MEQ PO ONE (21:15)
[2025-02-24] MEDS ORDERED: INSULIN LANTUS (GLARGINE) 1 /0.01ml (100units/ml) SC SCH (22:00)
[2025-02-25] MEDS ORDERED: INSULIN LISPRO (HUMAN) 100 UNITS/ML ML SC SCH (07:00)
[2025-02-25] MEDS ORDERED: ASPirin 81 mg TAB PO SCH (10:00)
== END 2025-02-24 20:18 | disposition short-term general hospital (02) | DRG 871 ==
LOC: ER 17:39 → EDBD 17:39 → OVERFLOW 02-21 04:41 → CATH ICU 02-22 18:29 → TELE-WESTW 02-23 16:34
PROVIDERS: ADMIT Student in an Organized Health Care Education/Training Program; ATTEND Student in an Organized Health Care Education/Training Program
PROC: 5A09457 Assistance with Respiratory Ventilation, 24-96 Consecutive Hours, Continuous Positive Airway Pressure (ICD-10-PCS; 2025-02-20)
PROC: 5A09457 Assistance with Respiratory Ventilation, 24-96 Consecutive Hours, Continuous Positive Airway Pressure (ICD-10-PCS; 2025-02-21)
PROC: 4A023N7 Measurement of Cardiac Sampling and Pressure, Left Heart, Percutaneous Approach (ICD-10-PCS; principal; 2025-02-22)
PROC: B211YZZ Fluoroscopy of Multiple Coronary Arteries using Other Contrast (ICD-10-PCS; 2025-02-22)
PROC: B215YZZ Fluoroscopy of Left Heart using Other Contrast (ICD-10-PCS; 2025-02-22)
DX: A41.9 Sepsis, unspecified organism (principal); I21.4 Non-ST elevation (NSTEMI) myocardial infarction; J18.9 Pneumonia, unspecified organism; J96.00 Acute respiratory failure, unspecified whether with hypoxia or hypercapnia; N17.0 Acute kidney failure with tubular necrosis; I50.43 Acute on chronic combined systolic (congestive) and diastolic (congestive) heart failure; I11.0 Hypertensive heart disease with heart failure; E78.5 Hyperlipidemia, unspecified; E11.65 Type 2 diabetes mellitus with hyperglycemia; E66.01 Morbid (severe) obesity due to excess calories; D64.9 Anemia, unspecified; I27.20 Pulmonary hypertension, unspecified; F41.9 Anxiety disorder, unspecified; I07.1 Rheumatic tricuspid insufficiency; I25.10 Atherosclerotic heart disease of native coronary artery without angina pectoris; I45.10 Unspecified right bundle-branch block; Z87.891 Personal history of nicotine dependence; Z79.84 Long term (current) use of oral hypoglycemic drugs; Z68.39 Body mass index [BMI] 39.0-39.9, adult; Z79.899 Other long term (current) drug therapy
CPT/HCPCS: 36415; 36600; 70450; 71045; 71250; 80048; 80053; 80061; 80202; 81001; 82805; 82962; 83036; 83605; 83690; 83735; 83880; 84100; 84443; 84484; 85007; 85025; 85027; 85379; 85610; 85730; 87040; 87081; 93005; 93306; 93458; 94640; 94660; 96361; 96365; 99152; 99291; G0378; J1100; J1815; J2250; J2543; J3490; Q9967